=== PATIENT | female | born 1950 | race Caucasian/White ===

== ENCOUNTER → 2019-05-05 09:40 | Outpatient (BNVA) | payer MEDICARE, SELFPAY | PROVIDERS: Family Provider Family Medicine; PCP Family Medicine; Referring Provider Family Medicine; Visit Provider Specialist | DX: M79.605 Pain in left leg (principal); M79.604 Pain in right leg; G62.9 Polyneuropathy, unspecified | CPT/HCPCS: 95909 ==

== ENCOUNTER → 2019-06-06 14:24 | Outpatient (BNVA) | payer MEDICARE, SELFPAY | PROVIDERS: Family Provider Family Medicine; PCP Family Medicine; Visit Provider Nurse Practitioner | DX: F33.1 Major depressive disorder, recurrent, moderate (principal); F43.12 Post-traumatic stress disorder, chronic | CPT/HCPCS: 99214 ==

== ENCOUNTER 2019-06-24 15:16 | Outpatient (CLI) | payer MEDICARE, SELFPAY ==
--- NOTE | 2019-06-24 15:28 | MM_ITS ---
WS: [id number] BILATERAL DIGITAL SCREENING MAMMOGRAPHY WITH CAD CLINICAL INFORMATION: SCREENING HISTORY: Screening mammogram. No current complaints. COMPARISON: TECHNIQUE: Bilateral CC and MLO views. FINDINGS: The breasts are composed of heterogeneous fibroglandular density tissue, which can limit the detectio n of small underlying mass lesions. No suspicious mass, asymmetry, calcifications, or architectural d istortion. No evidence of malignancy. MM/[place] [id number] IMPRESSION: BI-RADS: 1-Negative FOLLOW UP: 1 Year Follow-up Recommend return to annual screening mammography.
== END 2019-06-24 15:17 | disposition home or self-care (01) ==
LOC: RADSHAW 15:23
PROVIDERS: Family Provider Family Medicine; PCP Family Medicine; Visit Provider Family Medicine
DX: Z12.31 Encounter for screening mammogram for malignant neoplasm of breast (principal)
CPT/HCPCS: 77067

== ENCOUNTER → 2019-08-07 08:26 | Outpatient (BNVA) | payer MEDICARE, SELFPAY | PROVIDERS: Family Provider Family Medicine; PCP Family Medicine; Visit Provider Nurse Practitioner | DX: F43.12 Post-traumatic stress disorder, chronic (principal); F33.1 Major depressive disorder, recurrent, moderate | CPT/HCPCS: 99213 ==

== ENCOUNTER → 2019-11-21 08:03 | Outpatient (BNVA) | payer MEDICARE, SELFPAY | PROVIDERS: Family Provider Family Medicine; PCP Family Medicine; Visit Provider Nurse Practitioner | DX: F43.12 Post-traumatic stress disorder, chronic (principal); F33.1 Major depressive disorder, recurrent, moderate | CPT/HCPCS: 99213 ==

== ENCOUNTER → 2020-02-11 08:28 | Outpatient (BNVA) | payer MEDICARE, SELFPAY | PROVIDERS: Family Provider Family Medicine; PCP Family Medicine; Visit Provider Nurse Practitioner | DX: F43.12 Post-traumatic stress disorder, chronic (principal); F33.1 Major depressive disorder, recurrent, moderate | CPT/HCPCS: 99214 ==

== ENCOUNTER → 2020-07-01 13:37 | Outpatient (BNVA) | payer MEDICARE, SELFPAY | PROVIDERS: Family Provider Family Medicine; PCP Family Medicine; Visit Provider Nurse Practitioner | DX: F43.12 Post-traumatic stress disorder, chronic (principal); F33.1 Major depressive disorder, recurrent, moderate | CPT/HCPCS: 99214 ==

== ENCOUNTER → 2020-09-30 13:29 | Outpatient (BNVA) | payer MEDICARE, SELFPAY | PROVIDERS: Family Provider Family Medicine; PCP Family Medicine; Visit Provider Nurse Practitioner | DX: F43.12 Post-traumatic stress disorder, chronic (principal); F33.1 Major depressive disorder, recurrent, moderate | CPT/HCPCS: 99214 ==

== ENCOUNTER → 2020-12-23 08:38 | Outpatient (BNVA) | payer MEDICARE, SELFPAY | PROVIDERS: Family Provider Family Medicine; PCP Family Medicine; Visit Provider Nurse Practitioner | DX: F43.12 Post-traumatic stress disorder, chronic (principal); F33.1 Major depressive disorder, recurrent, moderate | CPT/HCPCS: 99214 ==

== ENCOUNTER 2021-03-21 10:13 | Outpatient (CLI) | payer MEDICARE, SELFPAY ==
--- NOTE | 2021-03-21 10:27 | FL_ITS ---
WS: [id number] ESOPHAGRAM TECHNIQUE: Double contrast examination was performed with thin and thick barium. Upright and OWENS imag es were obtained. CLINICAL INFORMATION: DYSPHAGIA, UNSPECIFIED COMPARISON: Multiple prior comparisons dating back to 2013. FINDINGS: Swallowing: Mild early spillage with pooling in the vallecula. No aspiration or penetration. Esophagus: Normal esophageal motility. 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 Previously delayed transit of the barium tablet at the cricopharyngeus. Small esophageal hiatal hernia. Gastroesophageal reflux: None. Fluoroscopy time: 2.7 minutes. FL/FL barium swallow [id number] IMPRESSION: 1. Normal esophageal motility 2. Prominent cricopharyngeal achalasia similar to the prior examinations. Tammi nal narrowing at the level of the cricopharyngeus appears slightly more promine nt today. Briefly delayed transit of the barium tablet at this level which subs equently passed. 3. Small esophageal hiatal hernia. No visualized reflux.
== END 2021-03-21 10:14 | disposition home or self-care (01) ==
PROVIDERS: PCP Family Medicine; Visit Provider Surgery
DX: R13.10 Dysphagia, unspecified (principal); K44.9 Diaphragmatic hernia without obstruction or gangrene
CPT/HCPCS: 74220

== ENCOUNTER → 2021-04-15 12:35 | Outpatient (BNVA) | payer MEDICARE, SELFPAY | PROVIDERS: PCP Family Medicine; Visit Provider Nurse Practitioner | DX: F43.12 Post-traumatic stress disorder, chronic (principal); F33.1 Major depressive disorder, recurrent, moderate | CPT/HCPCS: 99214 ==

== ENCOUNTER → 2021-05-16 14:20 | Outpatient (BNVA) | payer MEDICARE, SELFPAY | PROVIDERS: PCP Family Medicine; Visit Provider Surgery | DX: Z20.822 Contact with and (suspected) exposure to COVID-19 (principal); Z11.52 Encounter for screening for COVID-19 | CPT/HCPCS: 87635 ==

== ENCOUNTER 2021-05-17 08:07 | Outpatient (CLI) | payer MEDICARE, SELFPAY ==
--- NOTE | 2021-05-17 08:30 | FL_ITS ---
WS: [id number] Exam: FL barium swallow modifd [id number] Date/Time of Exam: 05/17/2021 8:30 AM Reason For Exam: R13.10 - Dysphagia, unspecified Fluoroscopy time: 2.3 minutes Modified barium swallow was performed in conjunction with the speech therapy service. Swallowing function at the level of the oropharynx was normal. The patient experienced penetration in to the laryngeal inlet when ingesting thin liquid and nectar consistency barium foodstuffs. There was pooling of thin liquid in the vallecula and piriform sinus. There appears to be altered anatomy at t he level of the piriform sinus. A mass in this region is not excluded. Solid barium foodstuffs were n ot administered due to the risk of aspiration. FL/FL barium swallow modifd [id number] IMPRESSION: 1. The patient experienced penetration into the laryngeal inlet when ingesting thin liquid and nectar consistency barium foodstuffs. 2. Altered appearance involving the region of the piriform sinus. A mass in thi s region is not excluded. Endoscopic evaluation would be suggested for more det porsha evaluation. A separate report of the recommendations and findings will follow from the [facility] therapy service.
== END 2021-05-17 08:08 | disposition home or self-care (01) ==
PROVIDERS: PCP Family Medicine; Visit Provider Surgery
DX: R13.10 Dysphagia, unspecified (principal)
CPT/HCPCS: 74230; 92611

== ENCOUNTER → 2021-07-13 11:10 | Outpatient (BNVA) | payer MEDICARE, SELFPAY | PROVIDERS: PCP Family Medicine; Visit Provider Nurse Practitioner | DX: F43.12 Post-traumatic stress disorder, chronic (principal); F33.1 Major depressive disorder, recurrent, moderate | CPT/HCPCS: 87635; 99214 ==

== ENCOUNTER 2021-07-14 07:33 | Day surgery (SDC) | payer MEDICARE, SELFPAY ==
[2021-07-13 14:17] VITALS: BMI 26.2
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
[2021-07-14 08:18] VITALS: BP 104/66; PULSE 73; RESP 18; TEMP 36.2; O2SAT 96
[2021-07-14] MEDS: sodium chloride 0.9% 1,000 ML 30 ML IV (08:22)
--- NOTE | 2021-07-14 08:35 | W.PM.OPSFHP ---
Same Day Surgery H&P Indication for Procedure/HPI DATE OF PROCEDURE: July 14, 2021 CHIEF COMPLAINT/INDICATIONFOR SURGICAL PROCEDURE: Difficulty in swallowing PREOP DIAGNOSIS: Dysphagia PLANNED PROCEDURE: Operation Date: 07/14/21 09:15 Proposed Procedures p EGD Dilation W/ Balloon 95660 R13.10(Not Applicable) - Abraham Dozier MD 03/03/2021 Ms. Souza is a pleasant 70 years old female patient reports to me history of dysphagia that has been getting worse.? Particularly to solid food in the form of bread and steak.? She denies history of nonintentional weight loss.? She reports that she chews her food well when I asked her and no history of strokes.? Also no history of esophageal cancer.? She denies history of vomiting or hematemesis.? And she reports that her food gets stuck in her upper throat.? Patient is referred to me for further evaluation and management 04/04/2021 Comes today for follow-up status post barium swallow study that did show 1.? Normal esophageal motility 2.? Prominent cricopharyngeal achalasia similar to the prior examinations. Luminal narrowing at the level of the cricopharyngeus appears slightly more prominent today. Briefly delayed transit of the barium tablet at this level which subsequently passed. 3.? Small esophageal hiatal hernia. No visualized reflux. Pending EGD.? Patient was seen and evaluated by Dr. Chong BARBOUR for cricopharyngeal achalasia and perhaps potential stretch undergoing the EGD. Patient undergone a modified barium swallow 05/17/2021 based on my request; Impression 1.? The patient experienced penetration into the laryngeal inlet when ingesting thin liquid and nectar consistency barium foodstuffs. 2.? Altered appearance involving the region of the pyriform sinus.? A mass in this region is not excluded.? Endoscopic evaluation would be suggested for more detailed evaluation. Speech pathology recommendations: Positioning :90 degree hip flexion limit size of spoonfuls to 1 teaspoon The patient advised that at the present time she would do best with liquids and very soft textures.? The patient is already alternating liquids with solids to help with pharyngeal clearance.? The patient was encouraged to continue alternating liquids with solids. Feeding and other recommendation: This were discussed with the patient and patient verbalized understanding. Patient is scheduled to proceed with diagnostic EGD with possible biopsy 07/14/2021 Patient comes today for diagnostic EGD with possible biopsy and possible dilation ROS All systems have been reviewed negative except as per the above or per problem list Medications/Allergies* Home Medications Medication Instructions Recorded Confirmed Type budesonide-formoterol HFA 160 2 puff INHALATION BID 06/06/19 07/14/21 History mcg-4.5 mcg/actuation aerosol inhaler (Symbicort) simvastatin 20 mg tablet 20 mg PO DAILY 06/06/19 07/14/21 History Allergies/Adverse Reactions Allergy/AdvReac Type Severity Reaction Status Date / Time Penicillins Allergy Mild hives Verified 07/14/21 08:37 Current Medications: Generic Name Dose Route Start Last Admin Trade Name Freq PRN Reason Stop Dose Admin Sodium Chloride 1,000 mls @ 30 mls/hr 07/14/21 08:15 07/14/21 08:22 Sodium Chloride 0.9% IV 30 mls/hr .Q24H MITUL Administration Pertinent History/Comorbid Conditions* Medical History (Updated 03/29/21 @ 09:43 by Amari Schwarz MD) Major depressive disorder, recurrent, moderate Post-traumatic stress disorder, chronic Social History Current gender identity: Female Pertinent Exam Findings alert, oriented x 3, regular rate & rhythm and procedure specific exam findings (EGD with possible biopsy and possible balloon dilation) Recommendations Surgery/Procedure today (EGD with possible biopsy and possible dilation) Coding Level of Care Code Acute Data Processing Auditor for Sridevi Lacy
[2021-07-14 10:20] VITALS: BP 112/65; PULSE 93; RESP 18; TEMP 36.6; O2SAT 95
[2021-07-14 10:38] VITALS: BP 100/70; PULSE 81; RESP 20; O2SAT 95
--- NOTE | 2021-07-14 12:39 | ANE.PACU2 ---
Inpatient post-anesthesia follow up: Airway intact: Yes Vital signs: Temperature 97.8 F Pulse Rate 81 Respiratory Rate 20 Blood Pressure 100/70 Pulse Oximetry 95 Oxygen Delivery Me thod Room Air Oxygen Flow Rate 3 Fraction of Inspir ed Oxygen Hydration adequate: Yes Nausea and vomiting: No Pain level: 1 Mental status: Baseline
== END 2021-07-14 10:48 | disposition home or self-care (01) ==
PROVIDERS: PCP Family Medicine; Visit Provider Surgery
DX: R13.10 Dysphagia, unspecified (principal); R63.4 Abnormal weight loss; Z68.26 Body mass index [BMI] 26.0-26.9, adult; J44.9 Chronic obstructive pulmonary disease, unspecified
CPT/HCPCS: 43235; J2704; J7030

== ENCOUNTER → 2021-10-24 11:39 | Outpatient (BNVA) | payer MEDICARE, SELFPAY | PROVIDERS: PCP Family Medicine; Visit Provider Nurse Practitioner | DX: F43.12 Post-traumatic stress disorder, chronic (principal); F33.1 Major depressive disorder, recurrent, moderate | CPT/HCPCS: 99214 ==

== ENCOUNTER → 2022-08-15 12:43 | Outpatient (BNVA) | payer MEDICARE, SELFPAY | PROVIDERS: PCP Family Medicine; Visit Provider Family Medicine | DX: Z00.00 Encounter for general adult medical examination without abnormal findings (principal); E78.5 Hyperlipidemia, unspecified | CPT/HCPCS: 80053; 80061; 84443; 85025 ==

== ENCOUNTER → 2022-09-15 12:58 | Outpatient (BNVA) | payer MEDICARE, SELFPAY | PROVIDERS: PCP Family Medicine; Visit Provider Surgery | DX: R13.12 Dysphagia, oropharyngeal phase (principal); K22.0 Achalasia of cardia; R59.0 Localized enlarged lymph nodes | CPT/HCPCS: 99213 ==

== ENCOUNTER 2022-10-04 13:48 | Outpatient (CLI) | payer MEDICARE, SELFPAY ==
--- NOTE | 2022-10-04 14:00 | CT_ITS ---
WS: [id number] CT NECK TECHNIQUE: Contrast-enhanced CT of the neck with coronal and sagittal reformatted images. CLINICAL INFORMATION: cervical lymphadenpathy COMPARISON: CT 017 DLP: 127.[address] scans at [facility] use at least one of these dose optimization techniques: automated e xposure control; mA and/or kV adjustment per patient size (includes targeted exams where dose is matc hed to clinical indication); or iterative reconstruction. FINDINGS: Mild mucosal thickening paranasal sinuses. Mastoid air cells well aerated. Normal posterior nasophary nx. Normal parapharyngeal fat. Dental artifact degrades some images of the tongue base. Normal thyroi d gland enhancement. Tiny RIGHT thyroid lesions. Spiculated lesion LEFT upper lobe anteriorly measuri ng 1.2 CM. This is progressed slightly compared 017. Recommend chest CT follow-up. Tongue base appears normal. No evidence of supraglottic or glottic mass. Normal subglottic airway. 2 enlarged LEFT submandibular lymph nodes or submandibular nodules deep to the LEFT mandible along the anterior superior submandibular gland measuring 8.9 x12.9 mm. This visualized on coronal imaging. Normal parapharyngeal fat. Slightly prominent RIGHT submental lymph node measuring 8 mm. No other luzma picious enlarged lymph nodes. Mild spondylitic changes cervical spine. Disc space narrowing worse at C5-C6 and C6-C7. CT/CT neck w con* [id number] IMPRESSION: 1. Spiculated opacity LEFT upper lobe measuring 12 mm. This slightly progresse d compared to 217. Recommend chest CT follow-up. 2. Lobulated enhancing lymph nodes or nodules involving the anterosuperior mar gin of the LEFT submandibular gland largest measuring 12 x 9 mm posterior to th e LEFT mandible. This is best appreciated on the coronal imaging. 3. Prominent submental lymph node measuring 8 mm. Otherwise no enlarged cervic al lymph nodes. 4. No evidence of supraglottic or glottic mass. 5. No other suspicious findings.
[2022-10-04] MEDS: iohexol 350 mg/mL 500 mL Btl (per mL) IV (14:17)
== END 2022-10-04 13:49 | disposition home or self-care (01) ==
LOC: RAD 13:52
PROVIDERS: PCP Family Medicine; Visit Provider Surgery
DX: K22.0 Achalasia of cardia (principal); R59.0 Localized enlarged lymph nodes
CPT/HCPCS: 70491; Q9967

== ENCOUNTER 2022-10-06 06:47 | Day surgery (SDC) | payer MEDICARE, SELFPAY ==
[2022-10-05 08:31] VITALS: BMI 18.8
--- NOTE | 2022-10-06 07:12 | W.PM.OPSUD ---
Surgery/Procedure H&P Update DATE OF PROCEDURE: October 06, 2022 DATE H&P PERFORMED: 09/15/22 H&P UPDATE INFORMATION: I have reviewed H&P completed within last 30 days, I have examined patient prior to procedure and No changes to prior documentation PLANNED PROCEDURE: Operation Date: 10/06/22 08:00 [place] 88073 egd w/balloon dialation , R13.10 dysphagia(Not Applicable) - Niraj Mcclal, DO
[2022-10-06 07:20] VITALS: BP 99/55; PULSE 66; RESP 18; TEMP 36.1; O2SAT 99
[2022-10-06] MEDS: sodium chloride 0.9% 1,000 ML 30 ML IV (07:33)
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
[2022-10-06 08:49] VITALS: BP 90/54; PULSE 59; RESP 12; TEMP 36.1; O2SAT 100
[2022-10-06 09:07] VITALS: BP 106/66; PULSE 61; RESP 16; O2SAT 100
--- NOTE | 2022-10-06 13:56 | ANE.PACU2 ---
Inpatient post-anesthesia follow up: Airway intact: Yes Vital signs: Temperature 97 F Pulse Rate 61 Respiratory Rate 16 Blood Pressure 106/66 Pulse Oximetry 100 Oxygen Delivery Me thod Room Air Oxygen Flow Rate Fraction of Inspir ed Oxygen Hydration adequate: Yes Nausea and vomiting: No Pain level: 1 Mental status: Baseline
== END 2022-10-06 09:40 | disposition home or self-care (01) ==
PROVIDERS: PCP Family Medicine; Visit Provider Surgery
DX: K22.2 Esophageal obstruction (principal); R13.10 Dysphagia, unspecified; J45.909 Unspecified asthma, uncomplicated; F41.9 Anxiety disorder, unspecified; G62.9 Polyneuropathy, unspecified; F33.1 Major depressive disorder, recurrent, moderate
CPT/HCPCS: 43249; J2704; J7030

== ENCOUNTER → 2022-10-17 17:15 | Outpatient (BNVA) | payer MEDICARE, SELFPAY | PROVIDERS: PCP Family Medicine; Visit Provider Surgery | DX: Z09 Encounter for follow-up examination after completed treatment for conditions other than malignant neoplasm (principal) | CPT/HCPCS: 99212 ==

== ENCOUNTER 2022-10-23 14:50 | Outpatient (CLI) | payer MEDICARE, SELFPAY ==
--- NOTE | 2022-10-23 15:00 | CT_ITS ---
WS: [id number] CT chest w con* [id number] HISTORY: spiculated opacity left upper lobe based on CT results TECHNIQUE: Axial imaging performed through the thorax. Coronal and sagittal reformats are submitted. All CT scans at [facility] use at least one of these dose optimization techniques: automated exposure control; mA and/or kV adjustment per patient size (includes targeted exams where dose is mat ched to clinical indication); or iterative reconstruction. CONTRAST: Omnipaque 350; 100 mL IV. DLP: 158.22 mGy.cm COMPARISON: 10/04/[address] Lungs and central airway: Well aerated lungs. Reidentified is a irregular shaped LEFT upper lobe opac ification measuring 9 x 7 mm. Additional 5 mm irregular shaped nodule RIGHT lower lobe. No mass or pn eumonia. Pleura: Normal. No pleural effusion. Heart and pericardium: Normal size heart with no pericardial effusion. Mediastinum and srikanth: No mediastinum or hilar adenopathy. Vessels: Mild atherosclerosis aorta with no aneurysm. Proximal great vessels are normal size. Pulmona ry artery is normal size. Chest wall and lower neck: No soft tissue masses. Upper abdomen: IVC filter partially visualized in the upper abdomen appears appropriate. Visualized l iver is normal. Prior cholecystectomy. Stomach is markedly distended with fluid and food products. Osseous structures: No destructive process. CT/CT chest w con* [id number] IMPRESSION: 1. LEFT upper lobe mildly spiculated opacification measures 9 x 7 mm. Addition al RIGHT lower lobe 5 mm opacification. Recommend [address] follow-up. Serial evaluation will be necessary to exclude growth. 2. Prior cholecystectomy. 3. No adenopathy.
[2022-10-23 15:29] LABS: Blood Urea Nitrogen 11 mg/dL (8-23)
[2022-10-23] MEDS: iohexol 350 mg/mL 500 mL Btl (per mL) IV (15:34)
== END 2022-10-23 14:51 | disposition home or self-care (01) ==
PROVIDERS: Radiology Neuroradiology; PCP Family Medicine; Visit Provider Surgery
DX: R93.89 Abnormal findings on diagnostic imaging of other specified body structures (principal)
CPT/HCPCS: 71260; 82565; 84520; Q9967

== ENCOUNTER → 2022-10-24 10:05 | Outpatient (BNVA) | payer MEDICARE, SELFPAY | PROVIDERS: PCP Family Medicine; Referring Provider Surgery; Visit Provider Otolaryngology | DX: R59.0 Localized enlarged lymph nodes (principal) | CPT/HCPCS: 99204 ==

== ENCOUNTER → 2022-11-06 14:32 | Outpatient (BNVA) | payer MEDICARE, SELFPAY | PROVIDERS: PCP Family Medicine; Visit Provider Otolaryngology | DX: R59.0 Localized enlarged lymph nodes (principal); R13.10 Dysphagia, unspecified | CPT/HCPCS: 99213 ==

== ENCOUNTER → 2022-11-10 13:26 | Outpatient (BNVA) | payer MEDICARE, SELFPAY | PROVIDERS: PCP Family Medicine; Visit Provider Surgery | DX: K22.0 Achalasia of cardia (principal) | CPT/HCPCS: 99213 ==

== ENCOUNTER 2022-11-13 07:09 | Outpatient (CLI) | payer MEDICARE, SELFPAY ==
--- NOTE | 2022-11-13 06:30 | CT_ITS ---
WS: [id number] CT NECK TECHNIQUE: Contrast-enhanced CT of the neck with coronal and sagittal reformatted images. CLINICAL INFORMATION: dysphagia COMPARISON: CT neck October 04, 2022 DLP: 131.[address] scans at [facility] use at least one of these dose optimization techniques: automated e xposure control; mA and/or kV adjustment per patient size (includes targeted exams where dose is matc hed to clinical indication); or iterative reconstruction. FINDINGS: Mastoid air cells well aerated. Mild mucosal thickening in the paranasal sinuses. Normal po sterior nasopharynx. Normal parapharyngeal fat. Normal posterior nasopharynx. Parotid glands are normal. Normal submandibular glands. Previously described small nodules in the LEF T submandibular space appear stable compared to previous. A few normal sized submandibular lymph node s bilaterally. Thyroid gland is normal. Normal posterior fossa. No cervical lymphadenopathy. Mild spo ndylitic changes cervical spine with slight retrolisthesis C5 on C6. 9 x 7 mm spiculated lesion LEFT upper lobe is unchanged since the recent chest CT October 23, 2022 CT/CT neck w con* [id number] IMPRESSION: 1. Small nodules previously described LEFT submandibular space appear similar compared to previous. These likely represent clustered lymph nodes or accessory submandibular tissue. 2. No evidence of supraglottic or glottic mass. Normal subglottic airway. 3. Parotid glands are normal. 4. Normal thyroid gland. 5. 9 x 7 mm spiculated nodule LEFT upper lobe anteriorly is unchanged since recent chest CT. Recommend continued surveillance.
[2022-11-13 07:41] LABS: Blood Urea Nitrogen 16 mg/dL (8-23)
[2022-11-13] MEDS: iohexol 350 mg/mL 500 mL Btl (per mL) IV (07:46)
== END 2022-11-13 07:10 | disposition home or self-care (01) ==
PROVIDERS: Radiology Neuroradiology; PCP Family Medicine; Visit Provider Otolaryngology
DX: R13.10 Dysphagia, unspecified (principal); R59.0 Localized enlarged lymph nodes
CPT/HCPCS: 70491; 82565; 84520; Q9967

== ENCOUNTER 2022-12-20 09:26 | Day surgery (SDC) | payer MEDICARE, SELFPAY ==
[2022-12-20] VITALS (12 sets, daily range): BP systolic 80–144; BP diastolic 59–76; PULSE 71–95; RESP 18–22; TEMP 36.1–36.4; O2SAT 85–96
[2022-12-20] MEDS: sodium chloride 0.9% 1,000 ML 30 ML IV (10:00)
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
--- NOTE | 2022-12-20 10:43 | PM.HP ---
Providers/Chief Complaint Primary Care Provider: Moisés Cope MD Chief Complaint: 90872, K22.0, R131.10 History of Present Illness Beverly Souza is a 72 year old female Medications/Allergies Home Medications Medication Instructions Recorded Confirmed Last Taken Type budesonide-formoterol HFA 160 2 puff inhalation BID #10.2 grams 09/13/22 12/19/22 12/19/22 Rx mcg-4.5 mcg/actuation aerosol inhaler (Symbicort) simvastatin 20 mg tablet 20 mg PO DAILY 10/05/22 12/19/22 12/19/22 History Ensure shakes #120 ea 11/08/22 12/19/22 12/19/22 Rx buspirone 10 mg tablet 10 mg PO TID #270 tabs 12/04/22 12/19/22 12/19/22 Rx sertraline 50 mg tablet (Zoloft) 50 mg PO DAILY #90 tabs 12/04/22 12/19/22 12/19/22 Rx hydroxyzine HCl 25 mg tablet 25 mg PO DAILY PRN Anxiety #90 tabs 12/05/22 12/19/22 12/19/22 Rx Allergies Allergy/AdvReac Type Severity Reaction Status Date / Time Penicillins Allergy Mild hives Verified 12/20/22 09:51 PFSH Acute PFSH: Medical History Hyperlipidemia Major depressive disorder, recurrent, moderate Major depressive disorder, recurrent, moderate Post-traumatic stress disorder, chronic Surgical History History of History of cholecystectomy History of colonoscopy History of esophagogastroduodenoscopy (EGD) Social History Smoking and tobacco status: never smoked Current gender identity: Female Vitals/I&O/Wt Last Vital Signs Temp 97.5 F L 12/20/22 09:53 Pulse 71 12/20/22 09:53 Resp 18 12/20/22 09:53 BP 110/59 12/20/22 09:53 Pulse Ox 96 12/20/22 09:53 O2 Del Method Room Air 12/20/22 09:53 Weight last 48 hrs Weight 105 lb A&P Assessment and plan (1) Cricopharyngeal achalasia: Plan EGD with balloon dilation Attestations Medical Necessity Statement*: Home Coding Level of Care Code Acute Code for Chg Fwd Diagnoses Cricopharyngeal achalasia K22.0
[2022-12-20] MEDS: ipratropium-albuterol 3 mL Neb INHALATION (11:20)
[2022-12-20] MEDS: LORazepam 2 mg/mL INJ 1 mL 0.5 MG IVP (11:47)
--- NOTE | 2022-12-20 13:32 | ANE.PACU2 ---
Inpatient post-anesthesia follow up: Airway intact: Yes Vital signs: Temperature 97.0 F Pulse Rate 77 Respiratory Rate 20 Blood Pressure 123/76 Pulse Oximetry 93 Oxygen Delivery Me thod Room Air Oxygen Flow Rate 1 Fraction of Inspir ed Oxygen Hydration adequate: Yes Nausea and vomiting: No Pain level: 2 Mental status: Baseline
== END 2022-12-20 12:48 | disposition home or self-care (01) ==
PROVIDERS: PCP Family Medicine; Visit Provider Surgery
DX: R13.10 Dysphagia, unspecified (principal); K29.50 Unspecified chronic gastritis without bleeding; K22.0 Achalasia of cardia; K21.9 Gastro-esophageal reflux disease without esophagitis; J45.909 Unspecified asthma, uncomplicated; F41.9 Anxiety disorder, unspecified; E78.5 Hyperlipidemia, unspecified; F33.1 Major depressive disorder, recurrent, moderate
CPT/HCPCS: 43239; 43249; 88305; 88312; 88342; 94640; J2060; J2704; J7030

== ENCOUNTER 2023-01-17 09:52 | Day surgery (SDC) | payer MEDICARE, SELFPAY ==
[2023-01-15 14:06] VITALS: BMI 18.5
[2023-01-17 10:07] VITALS: BP 107/66; PULSE 80; RESP 16; TEMP 36.3; O2SAT 97
[2023-01-17 10:10] VITALS: BMI 19.2
[2023-01-17] MEDS: sodium chloride 0.9% 1,000 ML 30 ML IV (10:22)
--- NOTE | 2023-01-17 10:27 | ANES.PREANE2 ---
Pre-Anesthetic Assessment Height/Weight: Height 1.63 m Weight 50.802 kg Temp Pulse Resp BP Pulse Ox O2 Del Method 97.4 F L 80 16 107/66 97 Room Air 01/17/23 10:07 01/17/23 10:07 01/17/23 10:07 01/17/23 10:07 01/17/23 10:07 01/17/23 10:07 Operation Date: 01/17/23 10:45 Proposed Procedures p [id number] egd w/balloon dial : K22.0 ,R13.10(Not Applicable) - Niraj Mccall DO Familial anesthetic complications: Dysphagia Was Beta Caleb taken within 24 hours: N/A Was Clonidine taken within 24 hours: N/A Last intake: Intake Last Liquid Date 01/16/23 Last Liquid Time 18:00 Last Solid Date 01/16/23 Last Solid Time 10:00 Social No alcohol and No tobacco Exam alert, oriented x 3, clear to auscultation bilaterally and regular rate & rhythm Airway Submandibular: within normal limits Cervical ROM: within normal limits Mallampati: Class II Comments: Comments: Several missing, none loose History/ROS No significant history except as noted and No significant complaints Pulmonary Asthma and Chronic Obstructive Pulmonary Disease CV/HEM Deep Vein Thrombosis (20 years ago) None reported Hepatic Hepatitis (15 years ago) GI Dysphagia Metabolic None reported Musc/skel None reported Neuropsych Anxiety and Depression Anesthetic Plan ASA status: 2 Anesthesia: Anesthesia Evaluation, General and MAC Risk of > 500 ml blood loss (7ml/kg in children): No Medications/Allergies Home Medications Medication Instructions Recorded Confirmed Last Taken Type budesonide-formoterol HFA 160 2 puff inhalation BID #10.2 grams 09/13/22 01/17/23 01/16/23 Rx mcg-4.5 mcg/actuation aerosol inhaler (Symbicort) simvastatin 20 mg tablet 20 mg PO DAILY 10/05/22 01/17/23 01/16/23 History Ensure shakes #120 ea 11/08/22 12/19/22 12/19/22 Rx buspirone 10 mg tablet 10 mg PO TID #270 tabs 12/04/22 01/17/23 01/16/23 Rx sertraline 50 mg tablet (Zoloft) 50 mg PO DAILY #90 tabs 12/04/22 01/17/23 01/16/23 Rx pantoprazole 40 mg tablet,delayed 40 mg PO BID 6 weeks #84 tabs 12/20/22 01/17/23 01/16/23 Rx release (Protonix) hydroxyzine HCl 25 mg tablet 25 mg PO DAILY PRN Anxiety #90 tabs 12/25/22 01/17/23 01/16/23 Rx Allergies Allergy/AdvReac Type Severity Reaction Status Date / Time Penicillins Allergy Mild hives Verified 01/15/23 14:04 Current Medications Generic Name Dose Route Start Last Admin Trade Name Freq PRN Reason Stop Dose Admin Sodium Chloride 1,000 mls @ 30 mls/hr 01/17/23 10:00 01/17/23 10:22 Sodium Chloride 0.9% IV 01/18/23 09:59 30 mls/hr .Q24H MITUL Administration PFSH Anesthesia Medical History Hyperlipidemia Major depressive disorder, recurrent, moderate Major depressive disorder, recurrent, moderate Post-traumatic stress disorder, chronic Surgical History History of History of cholecystectomy History of colonoscopy History of esophagogastroduodenoscopy (EGD) Social History Smoking and tobacco status: never smoked Current gender identity: Female Data Anesthesia Cardiac Studies: No Data to Display
--- NOTE | 2023-01-17 10:40 | P.HP_ITS ---
Providers/Chief Complaint Primary Care Provider: Moisés Cope MD Chief Complaint: K22.0, R13.10 History of Present Illness Beverly Souza is a 72 year old female Review of Systems 2 General: Reports: 10 or more systems reviewed and unremarkable except in HPI and below Medications/Allergies Home Medications Medication Instructions Recorded Confirmed Last Taken Type budesonide-formoterol HFA 160 2 puff inhalation BID #10.2 grams 09/13/22 01/17/23 01/16/23 Rx mcg-4.5 mcg/actuation aerosol inhaler (Symbicort) simvastatin 20 mg tablet 20 mg PO DAILY 10/05/22 01/17/23 01/16/23 History Ensure shakes #120 ea 11/08/22 12/19/22 12/19/22 Rx buspirone 10 mg tablet 10 mg PO TID #270 tabs 12/04/22 01/17/23 01/16/23 Rx sertraline 50 mg tablet (Zoloft) 50 mg PO DAILY #90 tabs 12/04/22 01/17/23 01/16/23 Rx pantoprazole 40 mg tablet,delayed 40 mg PO BID 6 weeks #84 tabs 12/20/22 01/17/23 01/16/23 Rx release (Protonix) hydroxyzine HCl 25 mg tablet 25 mg PO DAILY PRN Anxiety #90 tabs 12/25/22 01/17/23 01/16/23 Rx Allergies Allergy/AdvReac Type Severity Reaction Status Date / Time Penicillins Allergy Mild hives Verified 01/15/23 14:04 PFSH Acute PFSH: Medical History Hyperlipidemia Major depressive disorder, recurrent, moderate Major depressive disorder, recurrent, moderate Post-traumatic stress disorder, chronic Surgical History History of History of cholecystectomy History of colonoscopy History of esophagogastroduodenoscopy (EGD) Social History Smoking and tobacco status: never smoked Current gender identity: Female Vitals/I&O/Wt Last Vital Signs Temp 97.4 F L 01/17/23 10:07 Pulse 80 01/17/23 10:07 Resp 16 01/17/23 10:07 BP 107/66 01/17/23 10:07 Pulse Ox 97 01/17/23 10:07 O2 Del Method Room Air 01/17/23 10:07 Weight last 48 hrs Weight 112 lb Weight 108 lb A&P Assessment and plan (1) Cricopharyngeal achalasia: Plan EGD with possible balloon dilation Attestations Medical Necessity Statement*: Home Coding Level of Care Code Acute Code for Chg Fwd Diagnoses Cricopharyngeal achalasia K22.0
[2023-01-17 11:18] VITALS: BP 110/63; PULSE 71; RESP 16; TEMP 36.3; O2SAT 99
[2023-01-17 11:32] VITALS: BP 118/70; PULSE 69; RESP 16; O2SAT 98
== END 2023-01-17 11:45 | disposition home or self-care (01) ==
PROVIDERS: PCP Family Medicine; Visit Provider Surgery
DX: K22.0 Achalasia of cardia (principal); E78.5 Hyperlipidemia, unspecified; K44.9 Diaphragmatic hernia without obstruction or gangrene; J44.9 Chronic obstructive pulmonary disease, unspecified; Z86.718 Personal history of other venous thrombosis and embolism
CPT/HCPCS: 43249; J2704; J7030

== ENCOUNTER 2023-01-30 07:17 | Outpatient (CLI) | payer MEDICARE, SELFPAY ==
--- NOTE | 2023-01-30 07:30 | CT_ITS ---
WS: [id number] CT CHEST TECHNIQUE: Noncontrast CT of the chest with coronal and sagittal reformatted images. CLINICAL INFORMATION: Recommend [address] per CT results COMPARISON: CT chest 10/23/2022 DLP: 211.[address] scans at [facility] use at least one of these dose optimization techniques: automated e xposure control; mA and/or kV adjustment per patient size (includes targeted exams where dose is matc hed to clinical indication); or iterative reconstruction. FINDINGS: Previous described spiculated opacity LEFT upper lobe anteriorly near the lung apex is unchanged sinc e 10/23/2022. This measures approximately 8 x 5 mm. Recommend 6-month follow-up. 5 mm opacity RIGHT lo wer lobe laterally unchanged. No other significant interval changes. Normal caliber thoracic aorta. Mild aortic calcification. Adre nal glands are normal. Cholecystectomy clips. IVC filter. Normal GE junction. No other suspicious pul monary parenchymal opacities. IMPRESSION: 1. LEFT upper lobe spiculated opacity is unchanged. This measures approximately 8 x 5 mm. Recommend 6-month follow-up chest CT. 2. No other interval changes.
== END 2023-01-30 07:18 | disposition home or self-care (01) ==
PROVIDERS: PCP Family Medicine; Visit Provider Surgery
DX: R93.89 Abnormal findings on diagnostic imaging of other specified body structures (principal); R91.8 Other nonspecific abnormal finding of lung field
CPT/HCPCS: 71250

== ENCOUNTER → 2023-02-06 15:50 | Outpatient (BNVA) | payer MEDICARE, SELFPAY | PROVIDERS: PCP Family Medicine; Visit Provider Surgery | DX: Z09 Encounter for follow-up examination after completed treatment for conditions other than malignant neoplasm (principal) | CPT/HCPCS: 99213 ==

== ENCOUNTER → 2023-07-25 10:59 | Outpatient (BNVA) | payer MEDICARE, SELFPAY | PROVIDERS: PCP Family Medicine; Visit Provider Family Medicine | DX: R13.12 Dysphagia, oropharyngeal phase; R53.1 Weakness; G62.9 Polyneuropathy, unspecified; E11.9 Type 2 diabetes mellitus without complications; Z79.899 Other long term (current) drug therapy | CPT/HCPCS: 80053; 82306; 82607; 84443; 85025; 86140 ==

== ENCOUNTER 2024-02-16 12:36 | Emergency (ER) | payer MEDICARE, SELFPAY ==
[2024-02-16 12:55] VITALS: BP 109/69; PULSE 77; RESP 17; TEMP 36.8; O2SAT 100; BMI 23.0
[2024-02-16 13:29] VITALS: BP 140/67; PULSE 80; O2SAT 97
--- NOTE | 2024-02-16 13:32 | CTR_ITS ---
PROCEDURE INFORMATION: Exam: CT Cervical Spine Without Contrast Exam date and time: 02/16/2024 1:52 PM Age: 73 years old Clinical indication: Neck pain; Additional info: Neck pain that radiates into lue TECHNIQUE: Imaging protocol: Computed tomography of the cervical spine without contrast. Radiation optimization: All CT scans at this facility use at least one of these dose optimization techniques: automated exposure control; mA and/or kV adjustment per patient size (includes targeted exams where dose is matched to clinical indication); or iterative reconstruction. COMPARISON: CT cervical spin wo con* [id number] 01/02/2018 5:28 PM RADIATION DOSE METRICS: Total DLP (mGy-cm): 159.17 FINDINGS: Bones/joints: No acute fracture. Normal alignment. C2-C3: No significant disc bulge or herniation. No severe spinal canal stenosis. No significant neural foraminal narrowing. C3-C4: No significant disc bulge or herniation. No severe spinal canal stenosis. Mild bilateral neural foramina narrowing. C4-C5: Diffuse disc bulging. No severe spinal canal stenosis. Mild bilateral neural foramina stenosis udteg-vqskxup-lksw-left. C5-C6: Diffuse disc bulging, posterior osteophytes. Mild spinal canal stenosis. Nakmewvt-jf-bijqfe bilateral neural foraminal narrowing. C6-C7: Diffuse disc bulging and posterior osteophytes. No severe spinal canal stenosis. Mild right, moderate left neural foramina narrowing. C7-T1: No significant disc bulge or herniation. No severe spinal canal stenosis. No significant neural foraminal narrowing. Lungs: Lung apices are normal. Soft tissues: Unremarkable. CT/CT cervical spin wo con* [id number] IMPRESSION: 1. Cervical spondylosis as described above. 2. Normal alignment.
--- NOTE | 2024-02-16 13:35 | W.ED.EXTPRO ---
HPI - Extremity Problem General: Chief complaint: Extremity Problem,Nontraumatic Stated complaint: Lt arm and neck pain Time Seen by Provider: 02/16/24 13:11 History of Present Illness: Lynne is a 73-year-old female that presents to the emergency department with complaints of neck and left upper extremity pain. Onset of symptoms 3 days ago. She reports steady progression with the onset. She describes the pain as a constant dull ache. She has used Biofreeze which has helped some but is also trialed anti-inflammatories which is offered her no relief. Patient denies episode before. Patient does have a new rash to the left upper extremity. Associated symptoms: Reports rash; Deny chest pain or fever(s) Related Data Previous Rx's Medication Instructions Recorded Zara palmer #120 ea 11/08/22 oxybutynin chloride 5 mg 5 mg PO DAILY #30 tabs 07/02/23 tablet,extended release 24 hr pantoprazole 40 mg tablet,delayed 40 mg PO DAILY 4 weeks #30 tabs 07/25/23 release (Protonix) Symbicort 160 mcg-4.5 See Rx Instructions .Route 09/17/23 mcg/actuation HFA aerosol inhaler .COMPLEX #11 grams (budesonide-formoterol) sertraline 100 mg tablet (Zoloft) 100 mg PO DAILY #90 tabs 11/15/23 simvastatin 20 mg tablet See Rx Instructions .Route 11/15/23 .COMPLEX #90 tabs buspirone 10 mg tablet See Rx Instructions .Route 12/10/23 .COMPLEX #270 tabs diazepam 5 mg tablet (Valium) 5 mg PO .COMPLEX PRN anxiety #2 12/24/23 tabs hydrocodone 5 mg-acetaminophen 325 1 tab PO Q8H PRN pain 2 weeks #10 12/24/23 mg tablet tabs hydroxyzine HCl 25 mg tablet 25 mg PO DAILY PRN Anxiety #90 tabs 01/22/24 ketorolac 10 mg tablet 10 mg PO Q8H PRN pain 5 days #15 02/16/24 tabs valacyclovir 1 gram tablet 1,000 mg PO TID 7 days #21 tabs 02/16/24 Allergies Allergy/AdvReac Type Severity Reaction Status Date / Time Penicillins Allergy Mild hives Verified 06/29/23 13:02 Review of Systems Const: Reports: fatigue and malaise; Denies: fever(s), chills or body aches Card: Denies: chest pain, palpitations, irregular heart rhythm, edema, swelling of feet/ankles, lightheadedness, syncope or dyspnea on exertion Resp: Denies: dyspnea GI: Denies: abdominal pain Musc: Reports: neck pain, extremity pain, muscle cramps and muscle weakness Skin/Breast: Reports: rash, skin tenderness and new lesions Neuro: Denies: headache(s) PFSH ED PFSH: Medical History Major depressive disorder, recurrent, moderate Hyperlipidemia Post-traumatic stress disorder, chronic Major depressive disorder, recurrent, moderate Surgical History History of colonoscopy History of History of cholecystectomy History of esophagogastroduodenoscopy (EGD) Social History Smoking and tobacco/nicotine status: unknown if used tobacco/nicotine Current gender identity: Female Physical Exam Const: COMMON NORMALS: no acute distress EXAM LIMITATIONS: altered mental status GENERAL APPEARANCE: cooperative HENMT: COMMON NORMALS: normocephalic and atraumatic HEAD & SCALP: normocephalic and atraumatic Eye: COMMON NORMALS: Equal, round and reactive pupils present PUPIL: Yes Equal, round and reactive pupils present Neck/C-Spine: COMMON NORMALS: full ROM, supple, no meningeal signs and no JVD GENERAL: Yes normal visual inspection and Yes trachea midline CERVICAL SPINE: Yes cervical ROM normal, Yes normal cervical lordosis, No Cervical spine tenderness and Yes Paracervical muscle tenderness OTHER: Neck pain that radiates down the left side through the C6 distribution Described as a dull ache. Denies numbness and tingling. Perceived weakness w LUE but none observed Patient has supervisor plastics, bicep, tricep, deltoid strength that is 5/5. Chest: COMMONS NORMALS: normal inspection of the chest Resp: COMMON NORMALS: normal respiratory effort, No retractions and No use of accessory muscles Cardio: COMMON NORMALS: no JVD and regular rate RATE: regular rate GI: COMMON NORMALS: Normal to inspection, nondistended, normoactive bowel sounds present Back/Pelvis: COMMON NORMALS: thoracic and lumbar spine normal to inspection, no thoracic nor lumbar tenderness, thoraco-lumbar ROM normal and straight leg raise negative bilaterally Neuro: MENINGEAL SIGNS: Yes no meningeal signs Skin: SKIN IMAGES (FEMALE): 1. Blistering rash that is painful Course Vital Signs: Vital signs: Vital Signs Temperature 98.2 F 02/16/24 12:55 Pulse Rate 76 02/16/24 14:53 Respiratory Rate 17 02/16/24 12:55 Blood Pressure 130/73 02/16/24 14:53 Pulse Oximetry 98 02/16/24 14:53 Oxygen Delivery Me thod Room Air 02/16/24 14:15 MDM - Extremity (Nontraumatic) Medical Decision Making Differential diagnosis includes fracture, fracture dislocation, contusion, cervical radiculopathy, shingles. Patient denies trauma. Denies falling. States that the pain slowly developed over the course of the day that started 3 days ago. Patient denies prior history of issue similar. Patient's pain does follow along a nerve distribution, C6. He did have an old CT in 2022 that revealed a left-sided disc osteophyte complex at C5/C6. I did obtain a CT of her cervical spine to evaluate further. The disc bulge with disc osteophyte complex more left-sided does cause foraminal stenosis however, I believe her symptoms are largely coming from the blistering rash that follows along the C6 distribution. Patient's pain was treated with Decadron, Toradol, Robaxin but he was also treated with valacyclovir. She will go home on valacyclovir 3 times daily and Toradol 3 times daily. She has a follow-up appointment with her primary care doctor on . She has been instructed to return to the emergency department for new, concerning, worsening symptoms Lab Data Radiology Impressions Cervical Spine CT 02/16/24 13:32 IMPRESSION: 1. Cervical spondylosis as described above. 2. Normal alignment. All radiology interpretation(s) finalized by discharge Discharge Plan Discharge Patient Disposition: Home Clinical Impression: Shingles Condition: Stable Prescriptions: New valacyclovir 1 gram tablet 1,000 mg PO TID 7 Days Qty: 21 0RF ketorolac 10 mg tablet 10 mg PO Q8H PRN (Reason: pain) 5 Days Qty: 15 0RF No Action oxybutynin chloride 5 mg tablet extended release 24hr 5 mg PO DAILY Qty: 30 11RF pantoprazole [Protonix] 40 mg tablet,delayed release (DR/EC) 40 mg PO DAILY 28 Days Qty: 30 11RF diazepam [Valium] 5 mg tablet 5 mg PO .COMPLEX PRN (Reason: anxiety) Qty: 2 1RF Rx Instructions: 5 mg orally take 1-2 tabs 30 mins prior to procedure PRN; hydrocodone-acetaminophen 5-325 mg tablet 1 tab PO Q8H PRN (Reason: pain) 14 Days Qty: 10 0RF (DME) Ensure shakes See Rx Instructions .Route .MEDSUPPLY Qty: 120 11RF Rx Instructions: 4 shakes daily Symbicort 160-4.5 mcg/actuation HFA aerosol inhaler See Rx Instructions .ROUTE .COMPLEX Qty: 11 11RF Dose Instruction: Inhale 2 puffs by mouth twice daily Rx Instructions: Inhale 2 puffs by mouth twice daily sertraline [Zoloft] 100 mg tablet 100 mg PO DAILY Qty: 90 0RF simvastatin 20 mg tablet See Rx Instructions .ROUTE .COMPLEX Qty: 90 3RF Dose Instruction: Take 1 tablet by mouth once daily Rx Instructions: Take 1 tablet by mouth once daily buspirone 10 mg tablet See Rx Instructions .ROUTE .COMPLEX Qty: 270 0RF Dose Instruction: TAKE 1 TABLET BY MOUTH THREE TIMES DAILY Rx Instructions: TAKE 1 TABLET BY MOUTH THREE TIMES DAILY hydroxyzine HCl 25 mg tablet 25 mg PO DAILY PRN (Reason: Anxiety) Qty: 90 0RF Rx Instructions: TAKE 1 TABLET BY MOUTH ONCE DAILY NEEDED FOR ANXIETY Discharge Orders: Discharge ED (Routine); Ordered 02/16/24 Ordered By: Norma Benitez [facility] [place] Referrals: Moisés Cope MD [Primary Care Provider] - Discharge Diet: Advance as tolerated Discharge Activity: Resume usual activity Patient Instructions: Ketorolac (By mouth) (Toradol), Valacyclovir (By mouth) (Valtrex), Shingles (ED), Opioid Safety, Pain Management Activity Restrictions/Additional Instructions: Please take your medication as prescribed Please return to the emergency department for new concerning or worsening symptoms Coding Level of Care Code ED Team Leader Surgery for Sridevi Lacy
[2024-02-16] MEDS: methocarbamol 500 mg Tablet PO (13:44)
[2024-02-16] MEDS: dexamethasone 10 mg/mL INJ IM (13:45)
[2024-02-16] MEDS: ketorolac 30 mg/mL INJ IM (13:47)
[2024-02-16 14:15] VITALS: BP 132/69; PULSE 74; O2SAT 96
[2024-02-16] MEDS: valACYclovir 1,000 mg Tablet 1000 MG PO (14:49)
[2024-02-16 14:53] VITALS: BP 130/73; PULSE 76; O2SAT 98
--- NOTE | 2024-02-16 16:23 | ECG_ITS ---
[facility] Test Date: 2024-02-16 Pat Name: Beverly Souza Department: Room: Gender: Female Manager Administrative Services: : 1950 Requested By: Norma Benitez Order Number: [id number] Reading MD: STEPHIE MENDIETA Measurements Intervals [place] Rate: 73 P: 72 NM: 167 QRS: 64 QRSD: 92 T: 61 QT: 391 QTc: 432 Interpretive Statements SINUS RHYTHM POSSIBLE RIGHT ATRIAL ENLARGEMENT [0.25mV P-WAVE] POSSIBLE LEFT ATRIAL ENLARGEMENT [-0.1mV P-WAVE IN V1/V2] Compared to ECG 01/02/2018 16:59:00 No significant changes Electronically Signed On 02-16-2024 18:14:13 CDT by STEPHIE MENDIETA [email or web address]
== END 2024-02-16 14:54 | disposition home or self-care (01) ==
PROVIDERS: Emergency Provider Nurse Practitioner; PCP Family Medicine
DX: B02.9 Zoster without complications (principal); E78.5 Hyperlipidemia, unspecified
CPT/HCPCS: 72125; 93005; 96372; 99284; J1100; J1885

== ENCOUNTER 2024-03-06 10:58 | Outpatient (CLI) | payer MEDICARE, SELFPAY ==
--- NOTE | 2024-03-06 10:45 | USCV_ITS ---
Beverly Souza Age: 73 Gender: F : 1950 Exam Date: 03/06/2024 11:12 Ordering Phys: Moisés Cope MD Technologist: GRANT Exam Location: [facility] [place] Indication: LLE SWELLING W/O PAIN X2 DAYS HISTORY: Lower extremity swelling. PROCEDURES: Venous duplex imaging was performed in only the left lower extremity. The following venous structures were evaluated: common femoral vein, profunda vein, proximal portion of the greater saphenous vein, superficial femoral vein, and the popliteal vein. In addition, the posterior tibial and peroneal trunk were evaluated. Serial compression, augmentation maneuvers, and spectral Doppler flow evaluation were performed. FINDINGS: + Acute LEFT Leg DVT from CFV- Pern V. Per Rebolledo given to Christin at Doctor's office. Patient was instructed to return to Dr. Cope's Office@ [phone] CONCLUSIONS Acute expansile LEFT LE DVT extending from Common femoral, femoral, popliteal, and into peroneal veins. Prelim to Christin at Doctor's office at time of exam 113 Patient instructed to return to office Sheldon Zambrano MD (Electronically Signed) Final Date: 06 March 2024 12:29 S
== END 2024-03-06 10:59 | disposition home or self-care (01) ==
PROVIDERS: PCP Family Medicine; Visit Provider Family Medicine
DX: I82.412 Acute embolism and thrombosis of left femoral vein (principal); G62.9 Polyneuropathy, unspecified
CPT/HCPCS: 93971

== ENCOUNTER 2024-03-07 15:09 | Emergency (ER) | payer MEDICARE, SELFPAY ==
[2024-03-07 15:23] VITALS: BP 102/67; PULSE 101; RESP 18; TEMP 36.7; O2SAT 92
--- NOTE | 2024-03-07 15:59 | CTR_ITS ---
PROCEDURE INFORMATION: Exam: CT Head Without Contrast Exam date and time: 03/07/2024 5:11 PM Age: 73 years old Clinical indication: Dizziness TECHNIQUE: Imaging protocol: Computed tomography of the head without contrast. Radiation optimization: All CT scans at this facility use at least one of these dose optimization techniques: automated exposure control; mA and/or kV adjustment per patient size (includes targeted exams where dose is matched to clinical indication); or iterative reconstruction. COMPARISON: CT cervical spin wo con* [id number] 02/16/2024 1:52 PM RADIATION DOSE METRICS: Total DLP (mGy-cm): 1014.28 FINDINGS: Brain: No hemorrhage. No edema. Moderate diffuse cerebral atrophy and mild sequela of chronic small vessel ischemic disease. No mass effect. Cerebral ventricles: No ventriculomegaly. Paranasal sinuses: Mucosal thickening with partially fluid-filled left maxillary sinus. Mastoid air cells: Visualized mastoid air cells are well aerated. Bones: Unremarkable. No acute fracture. Soft tissues: Unremarkable. CT/CT head wo con* [id number] IMPRESSION: No acute intracranial abnormality.
[2024-03-07 17:16] LABS: Basophils % 0.4 %; Eosinophils % 0.4 %; Hematocrit 35.3 % (36-47); Lymphocytes # 1.9 10^3/uL (0.8-4.8); Mean Corpuscular HGB Conc 32.3 g/dL (30-55); Mean Corpuscular Volume 83.6 fl (85-98); Mean Platelet Volume 8.2 fL (7.4-10.4); Monocytes # 0.7 10^3/uL (0.2-0.9); Monocytes % 10.2 %; Neutrophils # 4.51 10^3/uL (1.8-7.7); Neutrophils % 62.7 %; Nucleated Red Blood Cells % 0 %; Platelet Count 383 10^3/cmm (157-399); Red Blood Count 4.22 10^6/uL (3.85-5.65); Red Cell Distribution Width 14.1 % (12.1-15.1); White Blood Count 7.19 10^3/uL (3.29-11.43)
[2024-03-07 17:34] LABS: Alanine Aminotransferase 8 U/L (0-33); Albumin Level 3.5 g/dL (3.5-5.2); Alkaline Phosphatase 109 U/L (35-105); Anion Gap 15.1 (5-19); Aspartate Amino Transferase 18 U/L (0-32); Blood Urea Nitrogen 8 mg/dL (8-23); Calcium 8.6 mg/dL (8.5-10.5); Carbon Dioxide 26 mmol/L (22-29); Chloride 94 mmol/L (98-107); Creatinine Clr Calc Pharmacy 53.5938; Globulin 3.7 g/dL (1.3-4.6); Glucose 113 mg/dL (65-115); Lipase 14 U/L (13-60); Osmolality Calculated 271 mOsm/kg (285-295); Potassium 4.1 mmol/L (3.5-5.1); Sodium 131 mmol/L (136-145); Total Bilirubin 0.8 mg/dL (0.15-1.2); Total Protein 7.2 g/dL (6.6-8.7)
[2024-03-07 18:42] VITALS: BP 133/83; PULSE 96; RESP 16; O2SAT 97
--- NOTE | 2024-03-07 19:08 | W.ED.EXTPRO ---
HPI - Extremity Problem General: Chief complaint: Extremity Problem,Nontraumatic Stated complaint: Left leg painful Time Seen by Provider: 03/07/24 18:32 Source: patient Mode of arrival: ambulatory Limitations: no limitations History of Present Illness: Patient is a 73-year-old female who was brought into the emergency department for headache and nausea for the past few days. She was seen in the emergency department diagnosed with a DVT yesterday started on Eliquis. Family the room thinks that this may be secondary to side effects of the medication, but does note that the patient has essentially no fluid intake, and this has worsened since starting medication. She is complaining of a headache at this time, family notes no neurological deficits or stray from baseline mentation. She does have a history of COPD, she is denying any acute chest pain or shortness of breath. Family is concerned of the lack of fluid intake. She is still taking the 10 mg of Eliquis twice a day. No other symptoms reported at this time. Onset (ago): day(s) Pain Consistency: constant Associated symptoms: Deny chest pain, fever(s) or rash Context: other (Recently diagnosed DVT, started Eliquis yesterday) Related Data Previous Rx's Medication Instructions Recorded Ensure shakes #120 ea 11/08/22 simvastatin 20 mg tablet See Rx Instructions .Route 11/15/23 .COMPLEX #90 tabs hydroxyzine HCl 25 mg tablet 25 mg PO DAILY PRN Anxiety #90 tabs 01/22/24 ciprofloxacin HCl 500 mg tablet 500 mg PO BID #20 tabs 03/04/24 prednisone 20 mg tablet 20 mg PO DAILY #5 tabs 03/04/24 Symbicort 160 mcg-4.5 See Rx Instructions .Route 03/06/24 mcg/actuation HFA aerosol inhaler .COMPLEX #11 grams (budesonide-formoterol) albuterol sulfate 90 mcg/actuation 2 inh inhalation Q6H PRN shortness 03/06/24 breath activated powder inhaler of breath or wheezing #1 ea (ProAir RespiClick) apixaban 5 mg (74 tabs) tablets in See Rx Instructions PO PER PKG DIR 03/06/24 a dose pack (Eliquis DVT-PE Treat #74 ea 30D Start) buspirone 10 mg tablet See Rx Instructions .Route 03/06/24 .COMPLEX #270 tabs sertraline 100 mg tablet (Zoloft) 100 mg PO DAILY #90 tabs 03/06/24 ondansetron HCl 4 mg tablet 4 mg PO Q8H #30 tabs 03/07/24 Allergies Allergy/AdvReac Type Severity Reaction Status Date / Time Penicillins Allergy Mild hives Verified 03/07/24 15:30 Review of Systems General: Reports: 10 or more systems reviewed and unremarkable except in HPI and below Const: Reports: change in appetite and malaise; Denies: fever(s), chills or fatigue Eyes: Denies: change in vision ENMT: Denies: throat pain, ear or mastoid pain or nasal discharge Card: Denies: chest pain, palpitations, swelling of feet/ankles or lightheadedness Resp: Denies: dyspnea, productive cough or wheezing GI: Reports: nausea; Denies: abdominal pain, vomiting, diarrhea or constipation : Denies: flank pain, difficulty voiding, dysuria or urinary frequency Musc: Denies: neck pain, back pain or joint pain Skin/Breast: Denies: rash Neuro: Reports: headache(s); Denies: numbness in extremities or weakness in extremities PFSH ED PFSH: Medical History Major depressive disorder, recurrent, moderate Hyperlipidemia Post-traumatic stress disorder, chronic Major depressive disorder, recurrent, moderate Surgical History History of colonoscopy History of History of cholecystectomy History of esophagogastroduodenoscopy (EGD) Social History Smoking and tobacco/nicotine status: unknown if used tobacco/nicotine Current gender identity: Female Physical Exam Const: COMMON NORMALS: patient oriented x3, no limitations and alert GENERAL APPEARANCE: anxious NUTRITIONAL APPEARANCE: thin ORIENTATION/CONSCIOUSNESS: Yes awake HENMT: COMMON NORMALS: normocephalic and atraumatic HEAD & SCALP: normocephalic and atraumatic OTHER: Cracked tongue, dry oral mucosa Eye: COMMON NORMALS: Equal, round and reactive pupils present, EOMs intact bilaterally and conjunctivae normal CONJUNCTIVA: Yes conjunctivae normal PUPIL: Yes Equal, round and reactive pupils present Neck/C-Spine: COMMON NORMALS: full ROM Resp: COMMON NORMALS: normal respiratory effort, No retractions and No use of accessory muscles AUSCULTATION: wheezes (Diffuse expiratory wheezing) Cardio: COMMON NORMALS: regular rate, regular rhythm, S1 normal heart sound present and S2 normal heart sound present RATE: regular rate RHYTHM: regular rhythm HEART SOUNDS: S1 normal heart sound present and S2 normal heart sound present GI: COMMON NORMALS: Normal to inspection, nondistended, normoactive bowel sounds present, Soft to palpation and non-tender PALPATION: Yes Soft to palpation Extremity: COMMON NORMALS: full ROM Neuro: COMMON NORMALS: patient oriented x3, CN's II-XII intact bilaterally, moves all extremities, no focal motor deficits and no sensory deficits noted SENSORIUM/ORIENTATION: Yes alert Skin: GENERAL SKIN EXAM: turgor decreased Course Vital Signs: Vital signs: Vital Signs Temperature 98.1 F 03/07/24 15:23 Pulse Rate 96 03/07/24 18:42 Respiratory Rate 16 03/07/24 18:42 Blood Pressure 133/83 03/07/24 18:42 Pulse Oximetry 97 03/07/24 18:42 Oxygen Delivery Me thod Room Air 03/07/24 18:42 MDM - Extremity (Nontraumatic) Medical Decision Making Patient diagnosed with a DVT today and started on Eliquis. Left lower extremity was still swollen here. However she was sent over by her primary care for evaluation of nausea, headache, and overall weakness. On physical exam she did have many findings consistent with dehydration including cracked tongue with dry oral mucosa, poor skin turgor, and sunken eyes. Family noted that they believe that this is exactly what has been causing patient's symptoms because she has essentially no fluid intake. Also they believe that this may have been medication side effect. Head CT was normal, and patient's lab work was all normal aside from a low sodium which could be secondary to dehydration as well. She was given IV fluids and after receiving both Zofran and Reglan, states that she did feel much better. Was given Tylenol at 1 point for her headache and this did help as well. Sat down with family and patient to discuss importance of drinking plenty of fluids, patient's kidney function was also noted to be completely normal. I also did give the patient 1 of Ativan at 1 point as she was clearly anxious and this probably was not helping her symptoms. For this, encouraged her to continue close follow-up with primary care and will prescribe her Zofran for her nausea. All other questions and concerns addressed, reasons to return were discussed. Lab Data 03/07/24 17:08 03/07/24 17:[address] 03/07/24 15:59 IMPRESSION: No acute intracranial abnormality. Laboratory Results WBC 7.19 10^3/uL (3.29-11.43) 03/07/24 17:08 RBC 4.22 10^6/uL (3.85-5.65) 03/07/24 17:08 Hgb 11.40 g/dL (11.27-16.99) 03/07/24 17:08 Hct 35.3 % (36-47) L 03/07/24 17:08 MCV 83.6 fl (85-98) L 03/07/24 17:08 MCH 27.0 pg (27-33) 03/07/24 17:08 MCHC 32.3 g/dL (30-55) 03/07/24 17:08 RDW 14.1 % (12.1-15.1) 03/07/24 17:08 Plt Count 383 10^3/cmm (157-399) 03/07/24 17:08 MPV 8.2 fL (7.4-10.4) 03/07/24 17:08 Neut % (Auto) 62.7 % 03/07/24 17:08 Lymph % (Auto) 26.0 % 03/07/24 17:08 [place] % (Auto) 10.2 % 03/07/24 17:08 Eos % (Auto) 0.4 % 03/07/24 17:08 Baso % (Auto) 0.4 % 03/07/24 17:08 Neut # (Auto) 4.51 10^3/uL (1.8-7.7) 03/07/24 17:08 Lymph # (Auto) 1.9 10^3/uL (0.8-4.8) 03/07/24 17:08 [place] # (Auto) 0.7 10^3/uL (0.2-0.9) 03/07/24 17:08 Eos # (Auto) 0.0 10^3/uL (0.0-0.8) 03/07/24 17:08 Baso # (Auto) 0.0 10^3/uL (0.0-0.1) 03/07/24 17:08 Nucleated RBC % (auto) 0 % 03/07/24 17:08 Nucleated RBCs # 0.0 /100WBC 03/07/24 17:08 Sodium 131 mmol/L (136-145) L 03/07/24 17:08 Potassium 4.1 mmol/L (3.5-5.1) 03/07/24 17:08 Chloride 94 mmol/L (98-107) L 03/07/24 17:08 Carbon Dioxide 26 mmol/L (22-29) 03/07/24 17:08 Anion Gap 15.1 (5-19) 03/07/24 17:08 BUN 8 mg/dL (8-23) 03/07/24 17:08 Creatinine 0.5 mg/dL (0.5-0.9) 03/07/24 17:08 GFR Calculation Not Reportable 03/07/24 17:08 Glucose 113 mg/dL (65-115) 03/07/24 17:08 Calculated Osmolality 271 mOsm/kg (285-295) L 03/07/24 17:08 Calcium 8.6 mg/dL (8.5-10.5) 03/07/24 17:08 Total Bilirubin 0.8 mg/dL (0.15-1.2) 03/07/24 17:08 AST 18 U/L (0-32) 03/07/24 17:08 ALT 8 U/L (0-33) 03/07/24 17:08 Alkaline Phosphatase 109 U/L (35-105) H 03/07/24 17:08 Total Protein 7.2 g/dL (6.6-8.7) 03/07/24 17:08 Albumin 3.5 g/dL (3.5-5.2) 03/07/24 17:08 Globulin 3.7 g/dL (1.3-4.6) 03/07/24 17:08 Lipase 14 U/L (13-60) 03/07/24 17:08 Urine Color Yellow (Yellow) 03/07/24 19:00 Urine Appearance Clear (CLEAR) 03/07/24 19:00 Urine pH 5.5 (5-7) 03/07/24 19:00 Ur Specific [place] 1.014 (1.005-1.030) 03/07/24 19:00 Urine Protein Trace (Negative) A 03/07/24 19:00 Urine Glucose (UA) Negative (Normal) 03/07/24 19:00 Urine Ketones Negative (Negative) 03/07/24 19:00 Urine Blood Negative (Negative) 03/07/24 19:00 Urine Nitrate Negative (Negative) 03/07/24 19:00 Urine Bilirubin Negative (Negative) 03/07/24 19:00 Urine Urobilinogen 1.0 mg/dL (Negative) 03/07/24 19:00 Ur Leukocyte Esterase Negative (Negative) 03/07/24 19:00 Urine RBC 0-2 /hpf (0-2) 03/07/24 19:00 Urine WBC 0-5 /hpf (0-5) 03/07/24 19:00 Ur Squamous Epith Cells 0-5 /hpf (0-5) 03/07/24 19:00 Amorphous Sediment Not Reportable 03/07/24 19:00 Urine Bacteria None seen /hpf (NONE) 03/07/24 19:00 Hyaline Casts 8.26 /lpf 03/07/24 19:00 Urine Mucus 3+ /hpf 03/07/24 19:00 All radiology interpretation(s) finalized by discharge Discharge Plan Discharge Patient Disposition: Home Clinical Impression: Acute dehydration DVT (deep venous thrombosis) Qualifiers: DVT location: lower extremity Affected thrombotic vein of extremity: unspecified vein of extremity Chronicity: chronic Laterality: left Qualified Code(s): 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 Condition: Stable Prescriptions: New ondansetron HCl 4 mg tablet 4 mg PO Q8H Qty: 30 0RF No Action ProAir RespiClick 90 mcg/actuation aerosol powdr breath activated 2 inh inhalation Q6H PRN (Reason: shortness of breath or wheezing) Qty: 1 11RF Symbicort 160-4.5 mcg/actuation HFA aerosol inhaler See Rx Instructions .ROUTE .COMPLEX Qty: 11 11RF Dose Instruction: Inhale 2 puffs by mouth twice daily Rx Instructions: Inhale 2 puffs by mouth twice daily sertraline [Zoloft] 100 mg tablet 100 mg PO DAILY Qty: 90 3RF buspirone 10 mg tablet See Rx Instructions .ROUTE .COMPLEX Qty: 270 3RF Dose Instruction: TAKE 1 TABLET BY MOUTH THREE TIMES DAILY Rx Instructions: TAKE 1 TABLET BY MOUTH THREE TIMES DAILY Eliquis DVT-PE Treat 30D Start 5 mg (74 tabs) tablets,dose pack See Rx Instructions PO PER PKG DIR Qty: 74 0RF Rx Instructions: PO PER PKG DIR prednisone 20 mg tablet 20 mg PO DAILY Qty: 5 0RF Rx Instructions: take with food. ciprofloxacin HCl 500 mg tablet 500 mg PO BID Qty: 20 0RF (DME) Ensure shakes See Rx Instructions .Route .MEDSUPPLY Qty: 120 11RF Rx Instructions: 4 shakes daily simvastatin 20 mg tablet See Rx Instructions .ROUTE .COMPLEX Qty: 90 3RF Dose Instruction: Take 1 tablet by mouth once daily Rx Instructions: Take 1 tablet by mouth once daily hydroxyzine HCl 25 mg tablet 25 mg PO DAILY PRN (Reason: Anxiety) Qty: 90 0RF Rx Instructions: TAKE 1 TABLET BY MOUTH ONCE DAILY NEEDED FOR ANXIETY Discharge Orders: Discharge ED (Routine); Ordered 03/07/24 Ordered By: Neeraj Nieto Referrals: Moisés Cope MD [Primary Care Provider] - Patient Instructions: Dehydration (ED) Activity Restrictions/Additional Instructions: Please drink plenty of fluids as we discussed, you may drink Gatorlyte or Pedialyte but please make sure you are drinking plenty of fluids. Take Zofran for nausea. Please continue taking your Eliquis as prescribed. Continue exercising lower extremities. Follow-up on Sunday as planned and please return with any new or worsening symptoms. Coding Level of Care Code ED Jigger Operator for Sridevi Lacy
[2024-03-07 19:14] LABS: Bilirubin Urine Negative (Negative); Blood Urine Negative (Negative); Glucose Urine UA Negative (Normal); Ketones Urine Negative (Negative); Leukocyte Esterase Urine Negative (Negative); Nitrate Urine Negative (Negative); Protein Urine Trace (Negative); Specific Gravity, Urine 1.014 (1.005-1.030); Urine Appearance Clear (CLEAR); Urine Color Yellow (Yellow); pH Urine 5.5 (5-7)
[2024-03-07 19:19] LABS: Bacteria Urine None Seen /hpf; Hyaline Casts Urine 8.26 /lpf; RBC Urine 0-2 /hpf (0-2); Squamous Epithelial Cell Urine 0-5 /hpf (0-5); Universal Test for UA Present (0); WBC Urine 0-5 /hpf (0-5)
[2024-03-07 19:40] LABS: Mucus Urine 3+ /hpf
[2024-03-07] MEDS: sodium chloride 0.9% 1,000 ML 999 ML IV (19:46)
[2024-03-07] MEDS: ondansetron 2 mg/ML SDV 2 mL 4 MG IVP (19:46)
[2024-03-07] MEDS: LORazepam 2 mg/mL INJ 1 mL 1 MG IVP (21:13)
[2024-03-07] MEDS: acetaminophen 500 mg Tablet 1000 MG PO (21:13)
[2024-03-07] MEDS: metoclopramide 5 mg/mL SDV 2 mL 10 MG IVP (21:13)
[2024-03-07 23:01] VITALS: BP 128/79; PULSE 84; RESP 16; O2SAT 96
== END 2024-03-07 22:44 | disposition home or self-care (01) ==
PROVIDERS: Emergency Medicine; Emergency Provider Physician Assistant; PCP Family Medicine
DX: E86.0 Dehydration (principal); I82.502 Chronic embolism and thrombosis of unspecified deep veins of left lower extremity; Z79.01 Long term (current) use of anticoagulants; E78.5 Hyperlipidemia, unspecified
CPT/HCPCS: 36415; 70450; 80053; 81001; 83690; 85025; 96374; 96375; 99285; J2060; J2405; J2765; J7030

== ENCOUNTER → 2024-03-10 14:24 | Outpatient (BNVA) | payer MEDICARE, SELFPAY | PROVIDERS: PCP Family Medicine; Visit Provider Family Medicine | DX: I82.502 Chronic embolism and thrombosis of unspecified deep veins of left lower extremity (principal); R91.1 Solitary pulmonary nodule | CPT/HCPCS: 80048 ==

== ENCOUNTER 2024-04-01 09:44 | Outpatient (CLI) | payer MEDICARE, SELFPAY ==
--- NOTE | 2024-04-01 10:45 | CTR_ITS ---
PROCEDURE INFORMATION: Exam: CT Chest With Contrast; Diagnostic Exam date and time: 04/01/2024 11:15 AM Age: 73 years old Clinical indication: Abnormal findings; Abnormal radiologic finding of the abdomen; Radiologic exam and body structure: CT chest; Lung mass or nodule; Single or solitary nodule; Prior surgery; Surgery date: 6+ months; Surgery type: Gb, bhargav filter; Additional info: Dvt. Lung nodule, hyponatremia TECHNIQUE: Imaging protocol: Diagnostic computed tomography of the chest with contrast. Radiation optimization: All CT scans at this facility use at least one of these dose optimization techniques: automated exposure control; mA and/or kV adjustment per patient size (includes targeted exams where dose is matched to clinical indication); or iterative reconstruction. Contrast material: OMNI 350; Contrast volume: 100 ml; Contrast route: INTRAVENOUS (IV); COMPARISON: CT chest [facility] [id number] 01/30/2023 7:29 AM RADIATION DOSE METRICS: Total DLP (mGy-cm): 530.84 FINDINGS: Lungs: Small subpleural spiculated opacity anterior apical left upper lobe stable from comparison best seen axial series 3, image 13. Negative for acute pulmonary consolidation. Small triangular subpleural pulmonary nodule in the lateral right lower lobe on axial series 3, image 36 stable from comparison. Negative for endobronchial obstruction. Pleural spaces: Unremarkable. No pneumothorax. No pleural effusion. Heart: Unremarkable. No cardiomegaly. No pericardial effusion. Lymph nodes: Unremarkable. No enlarged lymph nodes. Vasculature: Unremarkable. No aortic aneurysm. Bones/joints: Unremarkable. No acute fracture. Soft tissues: Unremarkable. PROCEDURE INFORMATION: Exam: CT Abdomen And Pelvis With Contrast Exam date and time: 04/01/2024 11:15 AM Age: 73 years old Clinical indication: Abnormal findings; Abnormal radiologic finding of the abdomen; Radiologic exam and body structure: CT chest; Lung mass or nodule; Single or solitary nodule; Prior surgery; Surgery date: 6+ months; Surgery type: Gb, bhargav filter; Additional info: Dvt. Lung nodule, hyponatremia TECHNIQUE: Imaging protocol: Computed tomography of the abdomen and pelvis with contrast. Radiation optimization: All CT scans at this facility use at least one of these dose optimization techniques: automated exposure control; mA and/or kV adjustment per patient size (includes targeted exams where dose is matched to clinical indication); or iterative reconstruction. Contrast material: OMNI 350; Contrast volume: 100 ml; Contrast route: INTRAVENOUS (IV); COMPARISON: CT chest sophia acevedo [id number] 01/30/2023 7:29 AM RADIATION DOSE METRICS: Total DLP (mGy-cm): 530.84 FINDINGS: Liver: Normal. No mass. Gallbladder and biliary ducts: Cholecystectomy. Nondilated biliary system. Pancreas: Normal. No ductal dilation. Spleen: Normal. No splenomegaly. Adrenal glands: Normal. No mass. Kidneys and ureters: Normal. No hydronephrosis. Stomach and bowel: Unremarkable. No obstruction. No mucosal thickening. Appendix: No evidence of appendicitis. Intraperitoneal space: Unremarkable. No free air. No significant fluid collection. Vasculature: Infrarenal IVC filter is present. There is a small amount of nonocclusive thrombus within the IVC filter cone. Plaque in the abdominal aorta wall without aneurysm or dissection. There is a small volume of nonocclusive thrombus in the distal IVC. Partially occlusive thrombus in the right common iliac vein. Small amount of thrombus is seen in the proximal left femoral vein, left common femoral vein. Relatively large volume of thrombus in the left common and external iliac veins. Lymph nodes: Unremarkable. No enlarged lymph nodes. Urinary bladder: Unremarkable as visualized. Reproductive: Unremarkable as visualized. Bones/joints: Unremarkable. No acute fracture. Soft tissues: Unremarkable. CT/CT chest abdpel w/*[id number] IMPRESSION: 1. No acute chest pathology identified. 2. Stable pulmonary nodules without interval change. IMPRESSION: 1. No acute abdominopelvic inflammatory pathology is identified. 2. Bilateral iliocaval deep vein thrombosis. COMMENTS: For patients with an IVC filter, recommend assessment for a management plan for the patient's IVC filter. If there is no established management plan, recommend referral to an interventional clinician on a nonemergent basis for evaluation.
[2024-04-01] MEDS: iohexol 350 mg/mL 500 mL Btl (per mL) PO (10:57)
[2024-04-01] MEDS: iohexol 350 mg/mL 500 mL Btl (per mL) IV (11:26)
== END 2024-04-01 09:45 | disposition home or self-care (01) ==
LOC: RAD 09:44
PROVIDERS: PCP Family Medicine; Visit Provider Family Medicine
DX: I82.421 Acute embolism and thrombosis of right iliac vein (principal); I82.422 Acute embolism and thrombosis of left iliac vein; R91.1 Solitary pulmonary nodule; E87.1 Hypo-osmolality and hyponatremia; I70.0 Atherosclerosis of aorta; Z95.828 Presence of other vascular implants and grafts; Z90.49 Acquired absence of other specified parts of digestive tract
CPT/HCPCS: 71260; 74177

== ENCOUNTER 2024-05-08 12:26 | Emergency (ER) | payer MEDICARE, SELFPAY ==
[2024-05-08 12:52] VITALS: BP 114/71; PULSE 88; RESP 17; TEMP 36.9; O2SAT 98; BMI 21.2
[2024-05-08 13:23] LABS: Basophils # 0.1 10^3/uL (0.0-0.1); Basophils % 1.4 %; Eosinophils % 0.4 %; Hematocrit 37.4 % (36-47); Lymphocytes # 1.7 10^3/uL (0.8-4.8); Lymphocytes % 34.4 %; Mean Corpuscular HGB Conc 32.4 g/dL (30-55); Mean Corpuscular Hemoglobin 28.1 pg (27-33); Mean Corpuscular Volume 86.8 fl (85-98); Mean Platelet Volume 8.6 fL (7.4-10.4); Monocytes # 0.4 10^3/uL (0.2-0.9); Monocytes % 7.9 %; Neutrophils # 2.73 10^3/uL (1.8-7.7); Neutrophils % 55.7 %; Nucleated Red Blood Cells % 0 %; Platelet Count 348 10^3/cmm (157-399); Red Blood Count 4.31 10^6/uL (3.85-5.65); Red Cell Distribution Width 14.4 % (12.1-15.1); White Blood Count 4.91 10^3/uL (3.29-11.43)
[2024-05-08 13:37] LABS: Alanine Aminotransferase 14 U/L (0-33); Albumin Level 3.8 g/dL (3.5-5.2); Alkaline Phosphatase 90 U/L (35-105); Anion Gap 13.1 (5-19); Aspartate Amino Transferase 27 U/L (0-32); Blood Urea Nitrogen 6 mg/dL (8-23); Calcium 9.1 mg/dL (8.5-10.5); Carbon Dioxide 26 mmol/L (22-29); Chloride 101 mmol/L (98-107); Creatinine Clr Calc Pharmacy 53.8774; Globulin 2.9 g/dL (1.3-4.6); Glucose 113 mg/dL (65-115); Lipase 16 U/L (13-60); Osmolality Calculated 280 mOsm/kg (285-295); Potassium 4.1 mmol/L (3.5-5.1); Sodium 136 mmol/L (136-145); Total Bilirubin 0.8 mg/dL (0.15-1.2); Total Protein 6.7 g/dL (6.6-8.7)
[2024-05-08] MEDS: ondansetron 2 mg/ML SDV 2 mL 4 MG IVP (13:59)
[2024-05-08 14:00] VITALS: BP 139/66; PULSE 70; RESP 18; O2SAT 96
--- NOTE | 2024-05-08 14:00 | ED_ITS ---
HPI - Nausea/Vomiting/Diarrhea 2 General: Chief complaint: Nausea/Vomiting/Diarrhea Stated complaint: vomitting Time Seen by Provider: 05/08/24 13:41 History of Present Illness: 73-year-old female presents emergency ro om complaining of nausea and vomiting. Nurses note states that began today when I talked her and her family states been going on for a couple of days it has been progressively worsening she had an episode of diarrhea this morning no definitive or localized abdominal pain. No hematochezia melena hematemesis or coffee-ground emesis denies dysuria urgency or frequency no shortness of breath or chest pain. 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 Associated nausea: Yes Associated symtoms: Reports nausea; Denies chest pain or dysuria Related Data Home Medications Medication Instructions Recorded Confirmed budesonide-formoterol HFA 160 2 puff inhalation BID 05/08/24 05/08/24 mcg-4.5 mcg/actuation aerosol inhaler (Symbicort) buspirone 10 mg tablet 10 mg PO TID 05/08/24 05/08/24 simvastatin 20 mg tablet 20 mg PO DAILY 05/08/24 05/08/24 Previous Rx's Medication Instructions Recorded Ensure shakes #120 ea 11/08/22 ondansetron HCl 4 mg tablet 4 mg PO Q8H #30 tabs 03/07/24 hydroxyzine HCl 25 mg tablet 25 mg PO DAILY PRN Anxiety #90 tabs 03/10/24 sertraline 100 mg tablet (Zoloft) 100 mg PO DAILY #90 tabs 03/18/24 apixaban 5 mg tablet (Eliquis) 5 mg PO BID #60 tabs 04/04/24 ondansetron 4 mg disintegrating 4 mg PO Q6H PRN nausea and 05/08/24 tablet vomiting #20 tabs Allergies Allergy/AdvReac Type Severity Reaction Status Date / Time Penicillins Allergy Mild hives Verified 03/07/24 15:30 Review of Systems 2 Const: Denies: fever(s) or chills Card: Denies: chest pain Resp: Denies: dyspnea GI: Reports: nausea and vomiting; Denies: abdominal pain : Denies: dysuria, urinary frequency or urinary urgency Musc: Denies: neck pain or back pain Skin/Breast: Denies: rash PFSH ED 2 PFSH: Medical History Major depressive disorder, recurrent, moderate Hyperlipidemia Post-traumatic stress disorder, chronic Major depressive disorder, recurrent, moderate Surgical History History of colonoscopy History of History of cholecystectomy History of esophagogastroduodenoscopy (EGD) Social History Smoking and tobacco/nicotine status: unknown if used tobacco/nicotine Current gender identity: Female Physical Exam 2 Const: COMMON NORMALS: no acute distress GENERAL APPEARANCE: cooperative and comfortable ORIENTATION/CONSCIOUSNESS: Yes awake, Yes oriented to person, Yes oriented to place and Yes oriented to time HENMT: COMMON NORMALS: normocephalic, atraumatic and hearing grossly normal bilaterally HEAD & SCALP: normocephalic and atraumatic Resp: COMMON NORMALS: normal respiratory effort, No retractions, No use of accessory muscles and clear to auscultation bilaterally AUSCULTATION: clear to auscultation bilaterally Cardio: COMMON NORMALS: regular rate, regular rhythm and No murmurs present (Cardio) RATE: regular rate RHYTHM: regular rhythm GI: COMMON NORMALS: Soft to palpation and No hepatosplenomegaly present A USCULTATION: Yes normoactive bowel sounds PALPATION: Yes Soft to palpation, No Tenderness to palpation present (GI), No Guarding due to palpation present (GI) and Yes No hepatosplenomegaly present Extremity: COMMON NORMALS: normal to inspection, capillary refill normal, no clubbing, cyanosis or edema, no calf tenderness and no pedal edema Neuro: SENSORIUM/ORIENTATION: Yes oriented to person, Yes oriented to place and Yes oriented to time Skin: COMMON NORMALS: no rashes or lesions noted GENERAL SKIN EXAM: no rashes or lesions noted Course 2 Vital Signs: Vital signs: Vital Signs Temperature 98.4 F 05/08/24 12:52 Pulse Rate 70 05/08/24 14:00 Respiratory Rate 18 05/08/24 14:00 Blood Pressure 139/66 05/08/24 14:00 Pulse Oximetry 96 05/08/24 14:00 Oxygen Delivery Me thod Room Air 05/08/24 12:52 MDM - Nausea/Vomiting/Diarrhea Medical Decision Making Clinically and on labs there is no sign of dehydration. She denies any vomiting since she arrived here. Will discharge home on ondansetron to use as needed small amounts of fluids frequently advance diet as tolerated Medical Records I reviewed the patient's medical records. Lab Data I reviewed the patient's lab results. 05/08/24 13:15 05/08/24 13:15 Radiology Impressions Abdomen/Pelvis CT 05/08/24 14:09 IMPRESSION: 1. 1 no GI tract obstruction. 2. No renal obstruction. 3. Prior cholecystectomy. 4. No enteritis or colitis. 5. IVC filter unchanged in position. Laboratory Results WBC 4.91 10^3/uL (3.29-11.43) 05/08/24 13:15 RBC 4.31 10^6/uL (3.85-5.65) 05/08/24 13:15 Hgb 12.10 g/dL (11.27-16.99) 05/08/24 13:15 Hct 37.4 % (36-47) 05/08/24 13:15 MCV 86.8 fl (85-98) 05/08/24 13:15 MCH 28.1 pg (27-33) 05/08/24 13:15 MCHC 32.4 g/dL (30-55) 05/08/24 13:15 RDW 14.4 % (12.1-15.1) 05/08/24 13:15 Plt Count 348 10^3/cmm (157-399) 05/08/24 13:15 MPV 8.6 fL (7.4-10.4) 05/08/24 13:15 Neut % (Auto) 55.7 % 05/08/24 13:15 Lymph % (Auto) 34.4 % 05/08/24 13:15 Alfalfa % (Auto) 7.9 % 05/08/24 13:15 Eos % (Auto) 0.4 % 05/08/24 13:15 Baso % (Auto) 1.4 % 05/08/24 13:15 Neut # (Auto) 2.73 10^3/uL (1.8-7.7) 05/08/24 13:15 Lymph # (Auto) 1.7 10^3/uL (0.8-4.8) 05/08/24 13:15 Alfalfa # (Auto) 0.4 10^3/uL (0.2-0.9) 05/08/24 13:15 Eos # (Auto) 0.0 10^3/uL (0.0-0.8) 05/08/24 13:15 Baso # (Auto) 0.1 10^3/uL (0.0-0.1) 05/08/24 13:15 Nucleated RBC % (auto) 0 % 05/08/24 13:15 Nucleated RBCs # 0.0 /100WBC 05/08/24 13:15 Sodium 136 mmol/L (136-145) 05/08/24 13:15 Potassium 4.1 mmol/L (3.5-5.1) 05/08/24 13:15 Chloride 101 mmol/L (98-107) 05/08/24 13:15 Carbon Dioxide 26 mmol/L (22-29) 05/08/24 13:15 Anion Gap 13.1 (5-19) 05/08/24 13:15 BUN 6 mg/dL (8-23) L 05/08/24 13:15 Creatinine 0.5 mg/dL (0.5-0.9) 05/08/24 13:15 GFR Calculation Not Reportable 05/08/24 13:15 Glucose 113 mg/dL (65-115) 05/08/24 13:15 Calculated Osmolality 280 mOsm/kg (285-295) L 05/08/24 13:15 Calcium 9.1 mg/dL (8.5-10.5) 05/08/24 13:15 Total Bilirubin 0.8 mg/dL (0.15-1.2) 05/08/24 13:15 AST 27 U/L (0-32) 05/08/24 13:15 ALT 14 U/L (0-33) 05/08/24 13:15 Alkaline Phosphatase 90 U/L (35-105) 05/08/24 13:15 Total Protein 6.7 g/dL (6.6-8.7) 05/08/24 13:15 Albumin 3.8 g/dL (3.5-5.2) 05/08/24 13:15 Globulin 2.9 g/dL (1.3-4.6) 05/08/24 13:15 Lipase 16 U/L (13-60) 05/08/24 13:15 Urine Color Yellow (Yellow) 05/08/24 13:42 Urine Appearance Clear (CLEAR) 05/08/24 13:42 Urine pH 6.0 (5-7) 05/08/24 13:42 Ur Specific [place] 1.011 (1.005-1.030) 05/08/24 13:42 Urine Protein Negative (Negative) 05/08/24 13:42 Urine Glucose (UA) Negative (Normal) 05/08/24 13:42 Urine Ketones Negative (Negative) 05/08/24 13:42 Urine Blood Negative (Negative) 05/08/24 13:42 Urine Nitrate Negative (Negative) 05/08/24 13:42 Urine Bilirubin Negative (Negative) 05/08/24 13:42 Urine Urobilinogen 1.0 mg/dL (Negative) 05/08/24 13:42 Ur Leukocyte Esterase Negative (Negative) 05/08/24 13:42 Urine RBC 3-5 /hpf (0-2) 05/08/24 13:42 Urine WBC 0-5 /hpf (0-5) 05/08/24 13:42 Ur Squamous Epith Cells 0-5 /hpf (0-5) 05/08/24 13:42 Amorphous Sediment Not Reportable 05/08/24 13:42 Urine Bacteria None seen /hpf (NONE) 05/08/24 13:42 Hyaline Casts 0.81 /lpf 05/08/24 13:42 Adenovirus (PCR) Not detected (NOT DETECT) 05/08/24 13:50 C. pneumoniae DNA (PCR) Not detected (NOT DETECT) 05/08/24 13:50 Coronavirus 229E (PCR) Not detected (NOT DETECT) 05/08/24 13:50 Human Metapneumovir PCR Not detected (NOT DETECT) 05/08/24 13:50 Influenza A (H1) PCR Not detected (NOT DETECT) 05/08/24 13:50 Influ A (H1/09) PCR Not detected (NOT DETECT) 05/08/24 13:50 Influenza A (H3) PCR Not detected (NOT DETECT) 05/08/24 13:50 Influenza Type A (PCR) Not detected (NOT DETECT) 05/08/24 13:50 Influenza Type B (PCR) Not detected (NOT DETECT) 05/08/24 13:50 M. pneumoniae (PCR) Not detected (NOT DETECT) 05/08/24 13:50 Parainfluenza 1 (PCR) Not detected (NOT DETECT) 05/08/24 13:50 Parainfluenza 2 (PCR) Not detected (NOT DETECT) 05/08/24 13:50 Parainfluenza 3 (PCR) Not detected (NOT DETECT) 05/08/24 13:50 Parainfluenza 4 (PCR) Not detected (NOT DETECT) 05/08/24 13:50 RSV Type A (PCR) Not detected (NOT DETECT) 05/08/24 13:50 RSV Type B (PCR) Not detected (NOT DETECT) 05/08/24 13:50 Entero/Rhino (PCR) Not detected (NOT DETECT) 05/08/24 13:50 SARS-CoV-2 (PCR) Not detected (NOT DETECT) 05/08/24 13:50 All radiology interpretation(s) finalized by discharge Discharge Plan Discharge Patient Disposition: Home Clinical Impression: Gastroenteritis, Nausea & vomiting Condition: Stable Prescriptions: New ondansetron 4 mg tablet,disintegrating 4 mg PO Q6H PRN (Reason: nausea and vomiting) Qty: 20 0RF No Action hydroxyzine HCl 25 mg tablet 25 mg PO DAILY PRN (Reason: Anxiety) Qty: 90 3RF Rx Instructions: TAKE 1 TABLET BY MOUTH ONCE DAILY NEEDED FOR ANXIETY sertraline [Zoloft] 100 mg tablet 100 mg PO DAILY Qty: 90 3RF (DME) Ensure shakes See Rx Instructions .Route .MEDSUPPLY Qty: 120 11RF Rx Instructions: 4 shakes daily Eliquis 5 mg tablet 5 mg PO BID Qty: 60 5RF ondansetron HCl 4 mg tablet 4 mg PO Q8H Qty: 30 0RF simvastatin 20 mg tablet 20 mg PO DAILY Rx Instructions: Take 1 tablet by mouth once daily buspirone 10 mg tablet 10 mg PO TID Rx Instructions: TAKE 1 TABLET BY MOUTH THREE TIMES DAILY budesonide-formoterol [Symbicort] 160-4.5 mcg/actuation HFA aerosol inhaler 2 puff inhalation BID Rx Instructions: Inhale 2 puffs by mouth twice daily Discharge Orders: Discharge ED (Routine); Ordered 05/08/24 Ordered By: Inderjit Clark Referrals: Moisés Cope MD [Primary Care Provider] - Discharge Diet: Full LIquid Discharge Activity: Increase activity as tolerated Patient Instructions: Opioid Safety, Pain Management Activity Restrictions/Additional Instructions: Thank you for choosing [facility] for your healthcare needs today. It is very important that you follow up as instructed or that you return to the Emergency Department should you have concerns or if your condition changes or worsens in any way. You are seen in the emergency room with complaints of nausea and vomiting. Your laboratory tests were normal. There is no signs on physical exam or laboratory testing of any dehydration. The respiratory panel done today was negative. This panel test for a number of different viruses that can cause different symptoms. Your urine showed a few red blood cells but the CT was negative. Recommend liquid diet and slowly advance as tolerated. Drink small amounts of liquids frequently. Coding Level of Care Code ED Product Line Manager for Sridevi Lacy
[2024-05-08 14:04] LABS: Bilirubin Urine Negative (Negative); Blood Urine Negative (Negative); Glucose Urine UA Negative (Normal); Ketones Urine Negative (Negative); Leukocyte Esterase Urine Negative (Negative); Nitrate Urine Negative (Negative); Protein Urine Negative (Negative); Specific Gravity, Urine 1.011 (1.005-1.030); Urine Appearance Clear (CLEAR); Urine Color Yellow (Yellow)
[2024-05-08 14:07] LABS: Add Urine Microscopic? YES; Bacteria Urine None Seen /hpf; Hyaline Casts Urine 0.81 /lpf; Squamous Epithelial Cell Urine 0-5 /hpf (0-5); WBC Urine 0-5 /hpf (0-5)
--- NOTE | 2024-05-08 14:09 | CT_ITS ---
WS: [id number] CT ABDOMEN AND PELVIS NONCONTRAST HISTORY: Hematuria nausea vomiting TECHNIQUE: Imaging performed through the abdomen and pelvis. Coronal and sagittal reformats are submi tted. All CT scans at [facility] use at least one of these dose optimization techniques: auto mated exposure control; mA and/or kV adjustment per patient size (includes targeted exams where dose is matched to clinical indication); or iterative reconstruction. DLP: 336.62 mGy.cm COMPARISON: 04/01/2024 Lower thorax: Lung bases are clear. Visualized heart is normal. No hiatal hernia. Liver: Normal size liver. No mass or bile duct dilatation. Gallbladder: Prior cholecystectomy. Pancreas: Normal size and attenuation. Normal pancreatic duct. No pancreatitis or mass. Spleen: Normal. Adrenal glands: Normal. No mass. Right kidney: Normal size kidney with no mass or hydronephrosis. Left kidney: Normal size kidney with no mass or hydronephrosis. Aorta: Mild atherosclerosis abdominal aorta with no aneurysm. IVC filter. No free fluid, intraperitoneal air or significant lymphadenopathy. GI tract: Normal noncontrast imaging of the stomach, small bowel and colon. No obstruction or wall th ickening. No appendicitis identified. Abdominal wall: Negative. No hernia. Pelvis: Normally distended urinary bladder. Atrophic uterus as expected. No free fluid or mass. Osseous structures: Slight anterior wedging of L2 is stable. CT/CT kidney stone [id number] IMPRESSION: 1. 1 no GI tract obstruction. 2. No renal obstruction. 3. Prior cholecystectomy. 4. No enteritis or colitis. 5. IVC filter unchanged in position.
[2024-05-08 15:56] LABS: Adenovirus Not Detected (NOT DETECT); Chlamydia Pneumoniae Not Detected (NOT DETECT); Coronavirus 229E,HKU1,NL63,OC4 Not Detected (NOT DETECT); Human Metapneumovirus Not Detected (NOT DETECT); Human Rhinovirus/Enterovirus Not Detected (NOT DETECT); Influenza A Not Detected (NOT DETECT); Influenza A H1 Not Detected (NOT DETECT); Influenza A H1-2009 Not Detected (NOT DETECT); Influenza A H3 Not Detected (NOT DETECT); Influenza B Not Detected (NOT DETECT); Mycoplasma Pneumoniae Not Detected (NOT DETECT); Parainfluenza Virus Type 1 Not Detected (NOT DETECT); Parainfluenza Virus Type 2 Not Detected (NOT DETECT); Parainfluenza Virus Type 3 Not Detected (NOT DETECT); Parainfluenza Virus Type 4 Not Detected (NOT DETECT); Respiratory Syncytial Virus A Not Detected (NOT DETECT); Respiratory Syncytial Virus B Not Detected (NOT DETECT); SARS-COV-2 Not Detected (NOT DETECT)
[2024-05-08 16:20] VITALS: BP 139/66; PULSE 81; O2SAT 95
== END 2024-05-08 16:21 | disposition home or self-care (01) ==
PROVIDERS: Emergency Medicine; Emergency Provider Family Medicine; PCP Family Medicine
DX: K52.9 Noninfective gastroenteritis and colitis, unspecified (principal); Z11.52 Encounter for screening for COVID-19; Z79.01 Long term (current) use of anticoagulants; E78.5 Hyperlipidemia, unspecified
CPT/HCPCS: 36415; 74176; 80053; 81001; 83690; 85025; 87486; 87581; 87633; 96374; 99285; J2405

== ENCOUNTER → 2024-05-13 11:00 | Outpatient (BNVA) | payer MEDICARE, SELFPAY | PROVIDERS: PCP Family Medicine; Referring Provider Family Medicine; Visit Provider Psychiatry & Neurology Neurology | DX: F03.90 Unspecified dementia, unspecified severity, without behavioral disturbance, psychotic disturbance, mood disturbance, and anxiety | CPT/HCPCS: 36415; 82542; 83520; 86592; 99203 ==

== ENCOUNTER 2024-05-23 15:40 | Outpatient (CLI) | payer MEDICARE, SELFPAY ==
--- NOTE | 2024-05-23 16:00 | USCV_ITS ---
LibbyBeverly Age: 73 Gender: F : 1950 Exam Date: 05/23/2024 15:48 Ordering Phys: Perico Cazares MD Technologist: [employer] Exam Location: [facility] [place] Indication: Stenosis Risk Factors: Previous Vascular Surgery: Right Brachial BP: / Left Brachial BP: / Right Left Velocity (cm/s) Spectral Plaque Velocity (cm/s) Spectral Plaque Syst/Diast Broadening Syst/Diast Broadening 64.50/ 5.00 Prox CCA 97.50 / 19.30 51.10/ 7.60 Mid CCA 80.20 / 10.60 53.00/ 11.30 Distal CCA 69.20 / 10.80 44.40/ 11.60 Prox ICA 61.10 / 9.70 72.20/ 15.30 Mid ICA 72.60 / 21.70 78.30/ 21.30 Distal ICA 62.90 / 13.20 92.60 ECA 121.40 0.80 ICA/CCA 0.90 Antegrade Vertebral Antegrade 43.10/ 10.40 cm/s 42.30/ 8.40 cm/s Tri Subclavian Tri 168.7 104.3 0 0 FINDINGS Comparison: none available. No significant elevation of systolic or diastolic velocities. Mixture of calcified and noncalcified plaque in the bifurcations. Antegrade vertebral arteries. CONCLUSIONS Bilateral ICA stenosis less than 50%. Mild carotid atherosclerosis. Dr. Magi Brooks DO (Electronically Signed) Final Date: 26 May 2024 07:59 S
== END 2024-05-23 15:41 | disposition home or self-care (01) ==
LOC: RAD 15:41
PROVIDERS: PCP Family Medicine; Visit Provider Psychiatry & Neurology Neurology
DX: R59.0 Localized enlarged lymph nodes (principal); R13.12 Dysphagia, oropharyngeal phase; F43.12 Post-traumatic stress disorder, chronic; F33.1 Major depressive disorder, recurrent, moderate; G62.9 Polyneuropathy, unspecified; F03.90 Unspecified dementia, unspecified severity, without behavioral disturbance, psychotic disturbance, mood disturbance, and anxiety; I65.23 Occlusion and stenosis of bilateral carotid arteries
CPT/HCPCS: 93880

== ENCOUNTER 2024-05-28 12:52 | Outpatient (CLI) | payer MEDICARE, SELFPAY ==
--- NOTE | 2024-05-28 13:00 | MR_ITS ---
WS: [id number] MRI BRAIN WITH AND WITHOUT CONTRAST HISTORY: F03.90 - Unspecified dementia, unspecified severity, with... COMPARISON: CT head 03/07/2024 TECHNIQUE: Multiplanar imaging performed through the brain with MultiHance 12 ml's IV. No acute infarcts are seen. Michael-white matter differentiation is well preserved. Mild bilateral cereb ral atrophy and mild hippocampal formation atrophy. A few scattered T2 and FLAIR signal hyperintensit ies from small vessel disease. Mild cerebellar atrophy. No susceptibility artifacts or prior lacunar infarcts. Ventricles and extra-axial spaces are normal. Clivus and pituitary gland are normal. Postcontrast images are negative for masses or vascular malformations. Dural venous sinuses are normal. Paranasal sinuses: Well aerated with no significant disease. Mastoid air cells: Normal. Calvarium and scalp: Normal. MR/MR head wo/w con [id number] IMPRESSION: 1. No prior infarcts or hemorrhage. 2. Mild cerebral, cerebellar and hippocampal atrophy. 3. Mild small vessel ischemic disease. 4. No enhancing masses or vascular malformations.
[2024-05-28] MEDS: gadobenate dimeglumine 20 mL vial 12 ML IV (13:50)
== END 2024-05-28 12:53 | disposition home or self-care (01) ==
PROVIDERS: PCP Family Medicine; Visit Provider Psychiatry & Neurology Neurology
DX: F03.90 Unspecified dementia, unspecified severity, without behavioral disturbance, psychotic disturbance, mood disturbance, and anxiety (principal); G31.89 Other specified degenerative diseases of nervous system; R93.0 Abnormal findings on diagnostic imaging of skull and head, not elsewhere classified
CPT/HCPCS: 70553

== ENCOUNTER → 2024-08-20 14:49 | Outpatient (BNVA) | payer MEDICARE, SELFPAY | PROVIDERS: PCP Family Medicine; Visit Provider Psychiatry & Neurology Neurology | DX: F03.90 Unspecified dementia, unspecified severity, without behavioral disturbance, psychotic disturbance, mood disturbance, and anxiety (principal) | CPT/HCPCS: 99212 ==

== ENCOUNTER 2025-01-12 13:51 | Emergency (ER) | payer MEDICARE, SELFPAY ==
[2025-01-12 13:56] VITALS: BP 105/64; PULSE 93; RESP 18; TEMP 36.7; O2SAT 95; BMI 23.0
--- OUTSIDE RECORDS SUMMARY | 2025-01-12 14:30 | XMS_ITS | Clinical Summary ---
Author Organization [facility] Address [address] Attn: Epic Prelude ADT MARC HYATT [address] Care Team Providers Care Mass Communications Professor Name Role Phone Moisés Cope MD Primary Care Provider Allergies Active Allergy Reactions Criticality Noted Date Comments Penicillins Rash High 03/04/2013 Active Problems Problem Noted Date Diagnosed Date CAD (coronary artery disease) 02/04/2014 Asthma 02/04/2014 Family History Relation Name Status Comments Brother (Age 32) ca Father chf Mother Alive Sister Alive Social History Tobacco Use Types Packs/Day Years Used Date Smoking Tobacco: Never Smokeless Tobacco: Never Alcohol Use Standard Drinks/Week Comments Yes 0 (1 standard drink = 0.6 oz pur e alcohol) Comments Unknown Sex and Gender Information Value Date Recorded Sex Assigned at Not on file Legal Sex 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 Gender Identity Not on file Sexual Orientation Not on file Plan of Treatment Health Maintenance Due Date Last Done Comments DTAP/TDAP/TD VACCINES (1 - Tdap) 1968 PNEUMOCOCCAL VACCINE 50+ YEARS (1 of 2 - PCV) 12/03/18 69 COLORECTAL SCREENING 1994 Colorectal Cancer Screening 1994 FIT-DNA Q 3 years 1994 FIT/FOBT Q 1 year 1994 Flex Sig/CT Colonography Q 5 years 1994 ZOSTER VACCINE (1 of 2) 12/04/1999 OSTEOPOROSIS SCREENING 2014 INFLUENZA VACCINE (#1) 2024 RSV VACCINE (60+ or ) (1 - 1-dose 75+ series) 2024 Care Teams Mass Communications Professor Relationship Specialty Start Date End Date Moisés Cope MD [address] [place] [id number] PCP - General Family Practice 02/13/14
--- OUTSIDE RECORDS SUMMARY | 2025-01-12 14:30 | XMS_ITS | Encounter Summary ---
Author Organization [facility] Address [address] [place] [address] Care Team Providers Care Early Childhood Education Worker Name Role Phone Moisés Cope MD Primary Care Provider [phone] Reason for Referral * Outpatient Services (Routine) - Closed Specialty Diagnoses / Procedures Referred By Marni burgess Referred To Contact Diagnoses Alteration consciousness Memory loss Procedures MRI BRAIN WO CONTRAST Jovan Ramirez MD [address] [place] [address] Phone: tel: fax: [facility] Pre-Registration [place] CALL TO MAKE APPOINTMENT ONLY [address] [place] [address] Phone: tel: fax: Referral ID Status Reason Start Date Expiration Date V isits Requested Visits Authorized [id number] Closed F [facility] TO SCHEDULE (SGF) 07/13/2017 08/13/2018 1 1 Encounter Details Date Type Department Care Team (Latest Contact Info) Description 07/13/2017 Ancillary Orders [facility] CALL TO MAKE APPOINTMENT ONLY [address] [place] [address] Jovan Ramirez MD [address] [place] [address] Alteration consciousness; Memory loss Social History Tobacco Use Types Packs/Day Years Used Date Smoking Tobacco: Never Smokeless Tobacco: Never Alcohol Use Standard Drinks/Week Comments Yes 0 (1 standard drink = 0.6 oz pur e alcohol) rare drink. Comments No Sex and Gender Information Value Date Recorded Sex Assigned at Not on file Legal Sex Female 11:18 AM CDT Gender Identity Not on file Sexual Orientation Not on file documented as of this encounter Plan of Treatment Not on file documented as of this encounter Results * MRI BRAIN WO CONTRAST (08/01/2017 5:00 PM CDT) Anatomical Region Laterality Modality Head Magnetic Resonan ce 08/01/2017 5:00 PM CDT Impressions 08/02/2017 12:19 PM CDT IMPRESSION: Please see below. Exam: MRI BRAIN WO CONTRAST Date/Time of Exam: 08/01/2017 5:00 PM Reason For Exam: Alteration consciousness,Memory loss. Technique: MRI of the brain was performed without the administration of intravenous contrast. Findings: There are a few small foci of T2 hyperintensity within the cerebral white matter which are within normal limits for the patient's age. There is no evidence of infarct, hemorrhage, or mass lesion. The ventricles appear normal in size and configuration. The major intracranial flow voids are intact. There is opacification of the left maxillary sinus and mild patchy mucosal thickening elsewhere within the paranasal sinuses. IMPRESSION: 1. Unremarkable appearance of the brain. No intracranial abnormality identified. 2. Opacification of the left maxillary sinus. [id number] Narrative Procedure Note Jose M Nguyen MD - 08/02/2017 IMPRESSION: Please see below. Exam: MRI BRAIN WO CONTRAST Date/Time of Exam: 08/01/2017 5:00 PM Reason For Exam: Alteration consciousness,Memory loss. Technique: MRI of the brain was performed without the administration of intravenous contrast. Findings: There are a few small foci of T2 hyperintensity within the cerebral white matter which are within normal limits for the patient's age. There is no evidence of infarct, hemorrhage, or mass lesion. The ventricles appear normal in size and configuration. The major intracranial flow voids are intact. There is opacification of the left maxillary sinus and mild patchy mucosal thickening elsewhere within the paranasal sinuses. IMPRESSION: 1. Unremarkable appearance of the brain. No intracranial abnormality identified. 2. Opacification of the left maxillary sinus. [id number] us Jovan Ramirez MD MR ORDERABLES Final Resul t documented in this encounter Visit Diagnoses Diagnosis Alteration consciousness Other alteration of consciousness Memory loss Alteration consciousness Other alteration of consciousness Memory loss documented in this encounter Care Teams Early Childhood Education Worker Relationship Specialty Start Date End Date Moisés Cope MD [address] [place] [id number] PCP - General Family Practice 02/13/14 documented as of this encounter
--- OUTSIDE RECORDS SUMMARY | 2025-01-12 14:30 | XMS_ITS | Clinical Summary ---
Author Organization [facility] de Address [address] [place] [address] Phone Care Team Providers Care Vacation Planner Name Role Phone Moisés Cope MD Primary Care Provider [phone] Allergies Active Allergy Reactions Criticality Noted Date Comments Penicillins Rash High 03/04/2013 Medications PARoxetine HCl (PAXIL) 20 mg tablet Take 20 mg by mouth daily. Active simvastatin (ZOCOR) 20 mg tablet Take 20 mg by mouth Daily LATE. Active OXYBUTYNIN CHLORIDE ORAL Take by mouth. A ctive fluticasone (FLONASE) 50 mcg/spray [place], Suspension Administer 2 Sprays in each nostril daily. Active omeprazole (PRILOSEC) 20 mg Capsule, Delayed Release(E.C.) Take 20 mg by mouth daily. Active pantoprazole (PROTONIX) 40 mg Tablet, Delayed Release (E.C.) Take 40 mg by mouth daily. Active nitroglycerin (NITROSTAT) 0.4 mg Tablet, Sublingual Place 0.4 mg under tongue every 5 minutes as needed. Active budesonide-form oterol (SYMBICORT) 160-4.5 mcg/actuation HFA Aerosol Inhaler Take 2 Puffs by inhalation 2 times daily. Active aspirin (TAMI CHEWABLE) 81 mg Tablet, Chewable Take 81 mg by mouth daily. Active Active Problems Problem Noted Date Diagnosed Date [...] on file Sexual Orientation Not on file Last Filed Vital Signs Vital Sign Reading Time Taken Comments Blood Pressure 118/54 03/04/2014 11:19 AM TRACK WORKER Pulse 89 03/04/2014 11:19 AM TRACK WORKER Temperature - - Respiratory Rate - - Oxygen Saturation - - Inhaled Oxygen Concentration - - Weight 80.3 kg (177 lb) 02/04/2014 9:07 AM CDT Height 163.8 cm (5' 4.5 ) 02/04/2014 9:07 AM CDT Body Mass Index 29.91 02/04/2014 9:07 AM CDT Plan of Treatment Health Maintenance Due Date [...] ) (1 - 1-dose 75+ series) [address] [place] [address] Care Teams Vacation Planner Relationship Specialty Start Date End Date Moisés Cope MD [address] [place] [address] PCP - General Family Practice 02/13/14
[2025-01-12 16:26] LABS: Hematocrit 39.3 % (36-47); Hemoglobin 13.00 g/dL (11.27-16.99); Mean Corpuscular HGB Conc 33.1 g/dL (30-55); Mean Corpuscular Hemoglobin 27.8 pg (27-33); Mean Corpuscular Volume 84.0 fl (85-98); Nucleated Red Blood Cells % 0 %; Platelet Count 328 10^3/cmm (157-399); Red Blood Count 4.68 10^6/uL (3.85-5.65); White Blood Count 12.45 10^3/uL (3.29-11.43)
[2025-01-12 16:56] LABS: Alanine Aminotransferase 21 U/L (0-33); Albumin Level 4.0 g/dL (3.5-5.2); Alkaline Phosphatase 92 U/L (35-105); Anion Gap 13.3 (5-19); Aspartate Amino Transferase 28 U/L (0-32); Blood Urea Nitrogen 9 mg/dL (8-23); Calcium 9.4 mg/dL (8.5-10.5); Carbon Dioxide 28 mmol/L (22-29); Chloride 101 mmol/L (98-107); Creatinine Clr Calc Pharmacy 54.8015; Globulin 3.4 g/dL (1.3-4.6); Glucose 113 mg/dL (65-115); Lipase 20 U/L (13-60); Osmolality Calculated 285 mOsm/kg (285-295); Potassium 4.3 mmol/L (3.5-5.1); Sodium 138 mmol/L (136-145); Total Protein 7.4 g/dL (6.6-8.7)
--- NOTE | 2025-01-12 18:52 | ED_ITS ---
Documented by User: LIV Cabrales 01/13/25 13:00 HPI - Nausea/Vomiting/Diarrhea 2 General: Chief complaint: Nausea/Vomiting/Diarrhea Stated complaint: dehydrated, weakness Time Seen by Provider: 01/12/25 16:27 Source: patient Mode of arrival: ambulatory Limitations: no limitations History of Present Illness: Patient is a 74-year-old female who presents to the emergency department complaining of nausea and vomiting beginning last night. States that she has felt weak and dehydrated, and possibly exposed to someone with viral illness. She has no pertinent past medical history to report, states that she threw up a couple times in the waiting room and this made her symptoms resolved completely. At time of examination she is requesting to leave, she is not complaining of any shortness of breath or chest pain. Her vitals are stable. Clinically appears nontoxic. MD elicited complaint: nausea and vomiting Onset (ago): day(s) Associated nausea: Yes Associated abdominal pain: No Location of pain: None Relieving factors: vomiting Associated symtoms: Reports fatigue, malaise and nausea; Denies chest pain, diaphoresis, dizziness, dysuria, headache(s) or palpitations Related Data Home Medications ?Medication ?Instructions ?Recorded ?Confirmed budesonide-formoterol HFA 160 2 puff inhalation BID 08/20/24 mcg-4.5 mcg/actuation aerosol inhaler (Symbicort) buspirone 10 mg tablet 10 mg PO TID 05/08/24 simvastatin 20 mg tablet 20 mg PO DAILY 05/08/2407/30 Previous Rx's ?Medication ?Instructions ?Recorded Ensure shakes #120 ea 11/08/22 hydroxyzine HCl 25 mg tablet 25 mg PO DAILY PRN Anxiet y #90 tabs 03/10/24 sertraline 100 mg tablet (Zoloft) 100 mg PO DAILY #90 tabs 03/18/24 ondansetron 4 mg disintegrating 4 mg PO Q6H PRN nausea and 05/08/24 tablet vomiting #20 tabs apixaban 5 mg tablet (Eliquis) 5 mg PO BID #60 tabs Allergies Allergy/AdvReac Type Severity Reaction Status Date / Time Penicillins Allergy Mild hives Verified 08/20/24 15:13 Review of Systems 2 General: Reports: 10 or more systems reviewed and unremarkable except in HPI and below Const: Reports: fatigue, malaise and other (Dehydration); Denies: fever(s), chills, change in appetite, change in weight or diaphoresis ENMT: Denies: throat pain or hoarseness Card: Denies: chest pain, palpitations or lightheadedness Resp: Denies: dyspnea, productive cough or wheezing GI: Reports: nausea and vomiting; Denies: abdominal pain or diarrhea : Denies: flank pain, difficulty voiding, dysuria, urinary frequency or urinary urgency Musc: Denies: neck pain or back pain Skin/Breast: Denies: rash or new lesions Neuro: Denies: headache(s) or dizziness PFSH ED 2 PFSH: Medical History Major depressive disorder, recurrent, moderate Hyperlipidemia Post-traumatic stress disorder, chronic Major depressive disorder, recurrent, moderate Surgical History History of colonoscopy History of History of cholecystectomy History of esophagogastroduodenoscopy (EGD) Social History Smoking and tobacco/nicotine status: never used tobacco/nicotine Current gender identity: Female Physical Exam 2 Const: COMMON NORMALS: no acute distress, average body habitus, patient oriented x3, no limitations, healthy appearing, alert and well nourished G ENERAL APPEARANCE: cooperative and comfortable ORIENTATION/CONSCIOUSNESS: Yes awake OTHER: Clinically nontoxic-appearing Neck/C-Spine: COMMON NORMALS: full ROM, supple, no meningeal signs and no JVD Resp: COMMON NORMALS: normal respiratory effort, No retractions, No use of accessory muscles and clear to auscultation bilaterally AUSCULTATION: clear to auscultation bilaterally, no crackles, no rales, no rhonchi and no wheezes Cardio: COMMON NORMALS: no JVD, regular rate, regular rhythm, S1 normal heart sound present, S2 normal heart sound present, No gallops present (Cardio), No clicks present (Cardio), No murmurs present (Cardio), No rub (Cardio) and Peripheral pulses 2+ throughout RATE: regular rate RHYTHM: regular rhythm HEART SOUNDS: S1 normal heart sound present and S2 normal heart sound present PERIPHERAL PULSES: Peripheral pulses 2+ throughout GI: COMMON NORMALS: Normal to inspection, nondistended, normoactive bowel sounds present, Soft to palpation, non-tender, No hepatosplenomegaly present and no masses AUSCULTATION: Yes normoactive bowel sounds PALPATION: Yes Soft to palpation, No Guarding due to palpation present (GI), No Rigid due to palpation and Yes No hepatosplenomegaly present RECTAL EXAM: deferred : COMMON NORMALS: Yes no CVA tenderness BLADDER/KIDNEY EXAM: Yes no CVA tenderness Back/Pelvis: COMMON NORMALS: no CVA tenderness Extremity: COMMON NORMALS: normal to inspection and full ROM Neuro: COMMON NORMALS: patient oriented x3, moves all extremities, no focal motor deficits and no sensory deficits noted SENSORIUM/ORIENTATION: Yes alert MENINGEAL SIGNS: Yes no meningeal signs Psych: COMMON NORMALS: mental status grossly normal, cooperative and speech normal SPEECH: Yes normal speech Skin: COMMON NORMALS: no rashes or lesions noted GENERAL SKIN EXAM: no rashes or lesions noted Course 2 Vital Signs: Vital signs: Vital Signs Temperature 98.1 F 01/12/25 13:56 Pulse Rate 93 01/12/25 13:56 Respiratory Rate 18 01/12/25 13:56 Blood Pressure 105/64 01/12/25 13:56 Pulse Oximetry 95 01/12/25 13:56 Oxygen Delivery Me thod Room Air 01/12/25 13:56 MDM - Nausea/Vomiting/Diarrhea Medical Decision Making Patient presented with nausea and vomiting since last night. States that while in the waiting room she had an episode of emesis and soon after her symptoms completely ameliorated. At my time of examination after she is brought back, she is requesting that she leave. All labs have been obtained and unremarkable aside from the urine or COVID, she denied wanting these done. I told her if she has any resumption of symptoms or any chest pain or shortness of breath to return immediately for reevaluation. She agrees with this plan. Lab Data 01/12/25 16:11 01/12/25 16:11 Laboratory Results WBC 12.45 10^3/uL (3.29-11.43) H 01/12/25 16:11 RBC 4.68 10^6/uL (3.85-5.65) 01/12/25 16:11 Hgb 13.00 g/dL (11.27-16.99) 01/12/25 16:11 Hct 39.3 % (36-47) 01/12/25 16:11 MCV 84.0 fl (85-98) L 01/12/25 16:11 MCH 27.8 pg (27-33) 01/12/25 16:11 MCHC 33.1 g/dL (30-55) 01/12/25 16:11 RDW 14.6 % (12.1-15.1) 01/12/25 16:11 Plt Count 328 10^3/cmm (157-399) 01/12/25 16:11 MPV 8.3 fL (7.4-10.4) 01/12/25 16:11 Neut % (Auto) 76.1 % 01/12/25 16:11 Lymph % (Auto) 18.2 % 01/12/25 16:11 [place] % (Auto) 4.9 % 01/12/25 16:11 Eos % (Auto) 0.1 % 01/12/25 16:11 Baso % (Auto) 0.4 % 01/12/25 16:11 Neut # (Auto) 9.48 10^3/uL (1.8-7.7) H 01/12/25 16:11 Lymph # (Auto) 2.3 10^3/uL (0.8-4.8) 01/12/25 16:11 [place] # (Auto) 0.6 10^3/uL (0.2-0.9) 01/12/25 16:11 Eos # (Auto) 0.0 10^3/uL (0.0-0.8) 01/12/25 16:11 Baso # (Auto) 0.1 10^3/uL (0.0-0.1) 01/12/25 16:11 Nucleated RBC % (auto) 0 % 01/12/25 16:11 Nucleated RBCs # 0.0 /100WBC 01/12/25 16:11 Sodium 138 mmol/L (136-145) 01/12/25 16:11 Potassium 4.3 mmol/L (3.5-5.1) 01/12/25 16:11 Chloride 101 mmol/L (98-107) 01/12/25 16:11 Carbon Dioxide 28 mmol/L (22-29) 01/12/25 16:11 Anion Gap 13.3 (5-19) 01/12/25 16:11 BUN 9 mg/dL (8-23) 01/12/25 16:11 Creatinine 0.4 mg/dL (0.5-0.9) L 01/12/25 16:11 GFR Calculation Not Reportable 01/12/25 16:11 Glucose 113 mg/dL (65-115) 01/12/25 16:11 Calculated Osmolality 285 mOsm/kg (285-295) 01/12/25 16:11 Calcium 9.4 mg/dL (8.5-10.5) 01/12/25 16:11 Total Bilirubin 0.8 mg/dL (0.15-1.2) 01/12/25 16:11 AST 28 U/L (0-32) 01/12/25 16:11 ALT 21 U/L (0-33) 01/12/25 16:11 Alkaline Phosphatase 92 U/L (35-105) 01/12/25 16:11 Total Protein 7.4 g/dL (6.6-8.7) 01/12/25 16:11 Albumin 4.0 g/dL (3.5-5.2) 01/12/25 16:11 Globulin 3.4 g/dL (1.3-4.6) 01/12/25 16:11 Lipase 20 U/L (13-60) 01/12/25 16:11 No radiology studies performed this visit Discharge Plan Discharge Patient Disposition: Home Clinical Impression: Nausea & vomiting Qualifiers: Vomiting type: unspecified Qualified Code(s): R11.2 - Nausea with vomiting, unspecified Condition: Stable Prescriptions: No Action hydroxyzine HCl 25 mg tablet 25 mg PO DAILY PRN (Reason: Anxiety) Qty: 90 3RF Rx Instructions: TAKE 1 TABLET BY MOUTH ONCE DAILY NEEDED FOR ANXIETY sertraline [Zoloft] 100 mg tablet 100 mg PO DAILY Qty: 90 3RF (DME) Ensure shakes See Rx Instructions .Route .MEDSUPPLY Qty: 120 11RF Rx Instructions: 4 shakes daily Eliquis 5 mg tablet 5 mg PO BID Qty: 60 5RF simvastatin 20 mg tablet 20 mg PO DAILY Rx Instructions: Take 1 tablet by mouth once daily buspirone 10 mg tablet 10 mg PO TID Rx Instructions: TAKE 1 TABLET BY MOUTH THREE TIMES DAILY budesonide-formoterol [Symbicort] 160-4.5 mcg/actuation HFA aerosol inhaler 2 puff inhalation BID Rx Instructions: Inhale 2 puffs by mouth twice daily ondansetron 4 mg tablet,disintegrating 4 mg PO Q6H PRN (Reason: nausea and vomiting) Qty: 20 0RF Discharge Orders: Discharge ED (Routine); Ordered 01/12/25 Ordered By: Neeraj Nieto Referrals: Moisés Cope MD [Primary Care Provider, Family Practice] Patient Instructions: Patient Portal & Rinku Instructions Activity Restrictions/Additional Instructions: Discharge Instructions: Nausea/Vomiting Discharge Instructions for Acute Nausea and Vomiting - Diagnosis and Status: The patient is a 74-year-old female evaluated for acute nausea and vomiting, now resolved. Laboratory results were reassuring. No urine sample or viral swab was obtained during the visit. She is clinically stable for discharge. - General Care Recommendations: - Hydration: Encourage oral fluid intake as tolerated. Begin with small sips of water or clear liquids. Gradually advance to bland, easily digestible foods (e.g., crackers, toast, rice, bananas) as tolerated.[1] https://pubmed.ncbi.nlm.nih.gov/63134882 [2] https://pubmed.ncbi.nlm.nih.gov/16966572 [3] https:/ /pubmed.ncbi.nlm.nih.gov/86627630 - Diet: Avoid fatty, spicy, or rich foods until fully recovered. Resume a normal diet as symptoms allow, typically after 4?6 hours of tolerating clear liquids without recurrence of vomiting.[4] https://pubmed.ncbi.nlm.nih.gov/06994988 - Activity: Rest as needed. Avoid strenuous activity until strength returns. - Medication: - If antiemetic therapy was initiated, continue only as directed and for the shortest duration necessary. Monitor for side effects, especially in older adults (e.g., constipation, QTc prolongation with serotonin antagonists).[1] https://pubmed.ncbi.nlm.nih.gov/95507892 [2] https://pubmed.ncbi.nlm.nih.gov/85245918 [5] https:/ /pubmed.ncbi.nlm.nih.gov/62511001 [6] https://pubmed.ncbi.nlm.nih.gov/81945226 - Avoid new medications unless approved by the primary care provider. - Nonpharmacologic Measures: - Eat small, frequent meals. - Avoid known trigger foods and strong odors.[1] https://pubmed.ncbi.nlm.nih.gov/64762693 [7] https://www.ncbi.nlm.nih.gov/pmc/articles/COJ1289335/ - Maintain adequate hydration. - Follow-Up: - Schedule prompt follow-up with the primary care provider tomorrow for reassessment and to complete any outstanding diagnostic testing (e.g., urinalysis, viral swab if indicated).[1] https://pubmed.ncbi.nlm.nih.gov/00547856 [2] https://pubmed.ncbi.nlm.nih.gov/12902660 [8] https:/ /pubmed.ncbi.nlm.nih.gov/74819679 - Strict Return Precautions: Return to the emergency department or seek immediate medical attention for any of the following: - Persistent or recurrent vomiting preventing oral intake - Signs of dehydration (e.g., dry mouth, decreased urination, dizziness, confusion) - Severe abdominal pain, chest pain, or headache - Blood in vomit or stool - Fever > 101?F (38.3?C) - New or worsening confusion, weakness, or inability to keep fluids down - Any other concerning or rapidly worsening symptoms[1] https://pubmed.ncbi.nlm.nih.gov/82285355 [2] https://pubmed.ncbi.nlm.nih.gov/24903883 [3] https:/ /pubmed.ncbi.nlm.nih.gov/10183034 [8] https://pubmed.ncbi.nlm.nih.gov/39940413 - Additional Notes: - If unable to tolerate oral fluids or if symptoms recur, consider re-evaluation for possible complications or alternative diagnoses. - If new medications are started, monitor for adverse effects, especially in the context of polypharmacy and comorbidities.[6] https://pubmed.ncbi.nlm.nih.gov/41022370 Summary: The patient is stable for discharge with resolved symptoms. She should follow up with her primary care provider tomorrow and return immediately for any concerning symptoms as outlined above. References * Evaluation and Treatment of Nausea and Vomiting in Adults https://pubmed.ncbi.nlm.nih.gov/85020956 . Gopal Epperson. [employer]ician. 2023;109(5):417-425. * A Practical 5-Step Approach to Nausea and Vomiting https://pubmed.ncbi.nlm.nih.gov/79521508 . Jessica Cook, Ruperto AMEZQUITA, Isra S. [facility] Proceedings. 2021;97(3):600-608. doi:10.1016/j.[facility].2020.10.030. * Evaluation of Nausea and Vomiting https://pubmed.ncbi.nlm.nih.gov/54539889 . Mauricio K, Jaden A, Lionel CookD, Franki J. [employer]ician. 2007;76(1):76-84. * Survey of Nil Per Os Duration of Patients Admitted to the Emergency Department Due to Vomiting https://pubmed.ncbi.nlm.nih.gov/87829021 . Johnson WC, Kemp YJ, Arina YC, et al. Medicine. 2019;98(14):t55400. doi:10.1097/MD.3327259467796113. * Practical Selection of Antiemetics in the Ambulatory Setting https://pubmed.ncbi.nlm.nih.gov/29944098 . Aaliyah ZA, Qiana BS, Jam JR. [employer]ician. 2015;91(5):293-6. * Same Old Story? Do We Need to Modify Our Supportive Care Treatment of Elderly Cancer Patients? Focus on Antiemetics https://pubmed.ncbi.nlm.nih.gov/43832318 . Trell Stevens. Drugs & Aging. 2004;21(13):825-32. doi:10.2165/17595856-268072834-95303. * [facility] Practice Guidance: Palliative Care and Symptom-Based Management in Decompensated Cirrhosis https://www.ncbi.nlm.nih.gov/pmc/articles/BKX4521372/ . Richard SS, Reagan L, Michael A, et al. Hepatology ([place] 2021;76(3):808-313. doi:10.1002/hep.21005. * Evaluation of Nausea and Vomiting: A Case-Based Approach https://pubmed.ncbi.nlm.nih.gov/87546849 . Miky KHAN, Lois REGAN. [employer]ician. 2013;88(6):371-9. Print Language: Mauritanian Coding Level of Care Code ED Oracle Database Architect for Chg Fwd Documented by User: Inderjit Clark, 01/13/25 14:40 HPI - Nausea/Vomiting/Diarrhea 2 General: Chief complaint: Nausea/Vomiting/Diarrhea Stated complaint: dehydrated, weakness Time Seen by Provider: 01/12/25 16:27 Related Data Home Medications ?Medication ?Instructions ?Recorded ?Confirmed budesonide-formoterol HFA 160 2 puff inhalation BID 08/20/24 mcg-4.5 mcg/actuation aerosol inhaler (Symbicort) buspirone 10 mg tablet 10 mg PO TID 05/08/24 simvastatin 20 mg tablet 20 mg PO DAILY 05/08/2407/30 Previous Rx's ?Medication ?Instructions ?Recorded Ensure shakes #120 ea 11/08/22 hydroxyzine HCl 25 mg tablet 25 mg PO DAILY PRN Anxiet y #90 tabs 03/10/24 sertraline 100 mg tablet (Zoloft) 100 mg PO DAILY #90 tabs 03/18/24 ondansetron 4 mg disintegrating 4 mg PO Q6H PRN nausea and 05/08/24 tablet vomiting #20 tabs apixaban 5 mg tablet (Eliquis) 5 mg PO BID #60 tabs Allergies Allergy/AdvReac Type Severity Reaction Status Date / Time Penicillins Allergy Mild hives Verified 08/20/24 15:13 PFSH ED 2 PFSH: Medical History Major depressive disorder, recurrent, moderate Hyperlipidemia Post-traumatic stress disorder, chronic Major depressive disorder, recurrent, moderate Surgical History History of colonoscopy History of History of cholecystectomy History of esophagogastroduodenoscopy (EGD) Social History Smoking and tobacco/nicotine status: never used tobacco/nicotine Current gender identity: Female Course 2 Vital Signs: Vital signs: Vital Signs Temperature 98.1 F 01/12/25 13:56 Pulse Rate 93 01/12/25 13:56 Respiratory Rate 18 01/12/25 13:56 Blood Pressure 105/64 01/12/25 13:56 Pulse Oximetry 95 01/12/25 13:56 Oxygen Delivery Me thod Room Air 01/12/25 13:56 MDM - Nausea/Vomiting/Diarrhea Medical Decision Making Patient presented with nausea and vomiting since last night. States that while in the waiting room she had an episode of emesis and soon after her symptoms completely ameliorated. At my time of examination after she is brought back, she is requesting that she leave. All labs have been obtained and unremarkable aside from the urine or COVID, she denied wanting these done. I told her if she has any resumption of symptoms or any chest pain or shortness of breath to return immediately for reevaluation. She agrees with this plan. Chart reviewed and patient discussed with midlevel. Agree with assessment and plan. Lab Data 01/12/25 16:11 01/12/25 16:11 Laboratory Results WBC 12.45 10^3/uL (3.29-11.43) H 01/12/25 16:11 RBC 4.68 10^6/uL (3.85-5.65) 01/12/25 16:11 Hgb 13.00 g/dL (11.27-16.99) 01/12/25 16:11 Hct 39.3 % (36-47) 01/12/25 16:11 MCV 84.0 fl (85-98) L 01/12/25 16:11 MCH 27.8 pg (27-33) 01/12/25 16:11 MCHC 33.1 g/dL (30-55) 01/12/25 16:11 RDW 14.6 % (12.1-15.1) 01/12/25 16:11 Plt Count 328 10^3/cmm (157-399) 01/12/25 16:11 MPV 8.3 fL (7.4-10.4) 01/12/25 16:11 Neut % (Auto) 76.1 % 01/12/25 16:11 Lymph % (Auto) 18.2 % 01/12/25 16:11 [place] % (Auto) 4.9 % 01/12/25 16:11 Eos % (Auto) 0.1 % 01/12/25 16:11 Baso % (Auto) 0.4 % 01/12/25 16:11 Neut # (Auto) 9.48 10^3/uL (1.8-7.7) H 01/12/25 16:11 Lymph # (Auto) 2.3 10^3/uL (0.8-4.8) 01/12/25 16:11 [place] # (Auto) 0.6 10^3/uL (0.2-0.9) 01/12/25 16:11 Eos # (Auto) 0.0 10^3/uL (0.0-0.8) 01/12/25 16:11 Baso # (Auto) 0.1 10^3/uL (0.0-0.1) 01/12/25 16:11 Nucleated RBC % (auto) 0 % 01/12/25 16:11 Nucleated RBCs # 0.0 /100WBC 01/12/25 16:11 Sodium 138 mmol/L (136-145) 01/12/25 16:11 Potassium 4.3 mmol/L (3.5-5.1) 01/12/25 16:11 Chloride 101 mmol/L (98-107) 01/12/25 16:11 Carbon Dioxide 28 mmol/L (22-29) 01/12/25 16:11 Anion Gap 13.3 (5-19) 01/12/25 16:11 BUN 9 mg/dL (8-23) 01/12/25 16:11 Creatinine 0.4 mg/dL (0.5-0.9) L 01/12/25 16:11 GFR Calculation Not Reportable 01/12/25 16:11 Glucose 113 mg/dL (65-115) 01/12/25 16:11 Calculated Osmolality 285 mOsm/kg (285-295) 01/12/25 16:11 Calcium 9.4 mg/dL (8.5-10.5) 01/12/25 16:11 Total Bilirubin 0.8 mg/dL (0.15-1.2) 01/12/25 16:11 AST 28 U/L (0-32) 01/12/25 16:11 ALT 21 U/L (0-33) 01/12/25 16:11 Alkaline Phosphatase 92 U/L (35-105) 01/12/25 16:11 Total Protein 7.4 g/dL (6.6-8.7) 01/12/25 16:11 Albumin 4.0 g/dL (3.5-5.2) 01/12/25 16:11 Globulin 3.4 g/dL (1.3-4.6) 01/12/25 16:11 Lipase 20 U/L (13-60) 01/12/25 16:11 Discharge Plan Discharge Patient Disposition: Home Clinical Impression: Nausea & vomiting Qualifiers: Vomiting type: unspecified Qualified Code(s): R11.2 - Nausea with vomiting, unspecified Condition: Stable Prescriptions: No Action hydroxyzine HCl 25 mg tablet 25 mg PO DAILY PRN (Reason: Anxiety) Qty: 90 3RF Rx Instructions: TAKE 1 TABLET BY MOUTH ONCE DAILY NEEDED FOR ANXIETY sertraline [Zoloft] 100 mg tablet 100 mg PO DAILY Qty: 90 3RF (DME) Ensure shakes See Rx Instructions .Route .MEDSUPPLY Qty: 120 11RF Rx Instructions: 4 shakes daily Eliquis 5 mg tablet 5 mg PO BID Qty: 60 5RF simvastatin 20 mg tablet 20 mg PO DAILY Rx Instructions: Take 1 tablet by mouth once daily buspirone 10 mg tablet 10 mg PO TID Rx Instructions: TAKE 1 TABLET BY MOUTH THREE TIMES DAILY budesonide-formoterol [Symbicort] 160-4.5 mcg/actuation HFA aerosol inhaler 2 puff inhalation BID Rx Instructions: Inhale 2 puffs by mouth twice daily ondansetron 4 mg tablet,disintegrating 4 mg PO Q6H PRN (Reason: nausea and vomiting) Qty: 20 0RF Discharge Orders: Discharge ED (Routine); Ordered 01/12/25 Ordered By: Neeraj Nieto Referrals: Moisés Cope MD [Primary Care Provider, Family Practice] Patient Instructions: Patient Portal & Rinku Instructions Activity Restrictions/Additional Instructions: Discharge Instructions: Nausea/Vomiting Discharge Instructions for Acute Nausea and Vomiting - Diagnosis and Status: The patient is a 74-year-old female evaluated for acute nausea and vomiting, now resolved. Laboratory results were reassuring. No urine sample or viral swab was obtained during the visit. She is clinically stable for discharge. - General Care Recommendations: - Hydration: Encourage oral fluid intake as tolerated. Begin with small sips of water or clear liquids. Gradually advance to bland, easily digestible foods (e.g., crackers, toast, rice, bananas) as tolerated.[1] https://pubmed.ncbi.nlm.nih.gov/61222010 [2] https://pubmed.ncbi.nlm.nih.gov/78223961 [3] https:/ /pubmed.ncbi.nlm.nih.gov/92856419 - Diet: Avoid fatty, spicy, or rich foods until fully recovered. Resume a normal diet as symptoms allow, typically after 4?6 hours of tolerating clear liquids without recurrence of vomiting.[4] https://pubmed.ncbi.nlm.nih.gov/49916045 - Activity: Rest as needed. Avoid strenuous activity until strength returns. - Medication: - If antiemetic therapy was initiated, continue only as directed and for the shortest duration necessary. Monitor for side effects, especially in older adults (e.g., constipation, QTc prolongation with serotonin antagonists).[1] https://pubmed.ncbi.nlm.nih.gov/17766762 [2] https://pubmed.ncbi.nlm.nih.gov/62854919 [5] https:/ /pubmed.ncbi.nlm.nih.gov/86103711 [6] https://pubmed.ncbi.nlm.nih.gov/17940257 - Avoid new medications unless approved by the primary care provider. - Nonpharmacologic Measures: - Eat small, frequent meals. - Avoid known trigger foods and strong odors.[1] https://pubmed.ncbi.nlm.nih.gov/07479234 [7] https://www.ncbi.nlm.nih.gov/pmc/articles/PFA6744352/ - Maintain adequate hydration. - Follow-Up: - Schedule prompt follow-up with the primary care provider tomorrow for reassessment and to complete any outstanding diagnostic testing (e.g., urinalysis, viral swab if indicated).[1] https://pubmed.ncbi.nlm.nih.gov/07791219 [2] https://pubmed.ncbi.nlm.nih.gov/56336200 [8] https:/ /pubmed.ncbi.nlm.nih.gov/83525814 - Strict Return Precautions: Return to the emergency department or seek immediate medical attention for any of the following: - Persistent or recurrent vomiting preventing oral intake - Signs of dehydration (e.g., dry mouth, decreased urination, dizziness, confusion) - Severe abdominal pain, chest pain, or headache - Blood in vomit or stool - Fever > 101?F (38.3?C) - New or worsening confusion, weakness, or inability to keep fluids down - Any other concerning or rapidly worsening symptoms[1] https://pubmed.ncbi.nlm.nih.gov/16502941 [2] https://pubmed.ncbi.nlm.nih.gov/72378199 [3] https:/ /pubmed.ncbi.nlm.nih.gov/91644028 [8] https://pubmed.ncbi.nlm.nih.gov/14006161 - Additional Notes: - If unable to tolerate oral fluids or if symptoms recur, consider re-evaluation for possible complications or alternative diagnoses. - If new medications are started, monitor for adverse effects, especially in the context of polypharmacy and comorbidities.[6] https://pubmed.ncbi.nlm.nih.gov/81481956 Summary: The patient is stable for discharge with resolved symptoms. She should follow up with her primary care provider tomorrow and return immediately for any concerning symptoms as outlined above. References * Evaluation and Treatment of Nausea and Vomiting in Adults https://pubmed.ncbi.nlm.nih.gov/28658489 . Gopal Epperson. [place] [employer] Physician. 2023;109(5):417-425. * A Practical 5-Step Approach to Nausea and Vomiting https://pubmed.ncbi.nlm.nih.gov/91978180 . Jessica Cook, Ruperto AK, Isra S. [facility] Proceedings. 2021;97(3):600-608. doi:10.1016/j.[facility].2020.10.030. * Evaluation of Nausea and Vomiting https://pubmed.ncbi.nlm.nih.gov/54741306 . Mauricio K, Jaden A, Lionel FLORINA, Franki J. [employer]ician. 2007;76(1):76-84. * Survey of Nil Per Os Duration of Patients Admitted to the Emergency Department Due to Vomiting https://pubmed.ncbi.nlm.nih.gov/04373444 . Johnson WC, Kemp YJ, Arina YC, et al. Medicine. 2019;98(14):h13427. doi:10.1097/MD.[id number]. * Practical Selection of Antiemetics in the Ambulatory Setting https://pubmed.ncbi.nlm.nih.gov/56109353 . Aaliyah ZA, Qiana BS, Jam JR. [place] [employer] Physician. 2015;91(5):293-6. * Same Old Story? Do We Need to Modify Our Supportive Care Treatment of Elderly Cancer Patients? Focus on Antiemetics https://pubmed.ncbi.nlm.nih.gov/87279256 . Trell Stevens. Drugs & Aging. 2004;21(13):825-32. doi:10.2165/[id number]. * [facility] Practice Guidance: Palliative Care and Symptom-Based Management in Decompensated Cirrhosis https://www.ncbi.nlm.nih.gov/pmc/articles/VAY5499238/ . Richard SS, Reagan L, Michael A, et al. Hepatology ([place], [place] 2021;76(3):819-853. doi:10.1002/hep.40962. * Evaluation of Nausea and Vomiting: A Case-Based Approach https://pubmed.ncbi.nlm.nih.gov/28951855 . Miky KHAN, Lois SM. [place] [facility]. 2013;88(6):371-9. Print Language: Mauritanian Coding Level of Care Code ED Oracle Database Architect for Sridevi Lacy
== END 2025-01-12 17:38 | disposition home or self-care (01) ==
PROVIDERS: Physician Assistant; Emergency Provider Physician Assistant; PCP Family Medicine
DX: R11.2 Nausea with vomiting, unspecified (principal)
CPT/HCPCS: 36415; 80053; 83690; 85025; 99283